=== PATIENT | female | born 1975 | race Caucasian/White ===

== ENCOUNTER 2019-03-12 18:21 | Inpatient (IN) | payer MEDICAID, OTHER ==
[~2019-03-12] VITALS: Ht 157.5 cm; Wt 58.6 kg
[2019-03-12] MEDS ORDERED: SOD CHLORIDE 0.9% 1,000 ML IV STA (19:06)
--- NOTE | 2019-03-12 19:09 | ERD ---
ER Documentation Chief Complaint Chief Complaint CP to neck/arm w/ nausea, no vomiting/SOB. took nitro x3-no improvement HPI This is a 43-year-old woman presenting with pressure-like chest discomfort radiating to the left shoulder and down the left medial arm and up to the neck beginning earlier today and lasting for about 30 minutes intermittently a few times today. She took aspirin and 3 doses of nitroglycerin without improvement and came here for evaluation. She does have a history of CAD and states she underwent PTCA via the right wrist back in September 2018 although she does not know if she received a coronary artery stent or just balloon angioplasty. She denies cough, no shortness of breath, no fevers or chills, no calf or leg swelling. ROS All systems reviewed and are negative except as per history of present illness. Medications Home Meds Reported Medications Prednisone* (Prednisone*) 5 Mg Tab, 5 MG PO DAILY, TAB 03/12/19 Nitroglycerin* (Nitrostat*) 0.4 Mg Tab.subl, 0.4 MG SL Q5MIN PRN for CHEST PAIN, BOTTLE 03/12/19 Allergies Allergies: Coded Allergies: No Known Drug Allergy (Unverified Allergy, Unknown, 03/12/19) PMhx/Soc History of CAD status post IA and PTCA with stent versus balloon (patient does not know) back in September 2018, hypertension FmHx Family History: No diabetes Physical Exam Vitals Vital Signs Date Temp Pulse Resp B/P (MAP) Pulse Ox O2 O2 Flow FiO2 Time Delivery Rate 03/12/19 62 20 117/76 98 Room Air 19:10 (90) 03/12/19 98.6 76 20 129/76 98 18:23 (93) Physical Exam GENERAL: Well-developed, well-nourished, well-hydrated, in no apparent distress, looks nontoxic in appearance HEENT: Moist mucous membranes, pink conjunctiva, no cervical spine tenderness or step-off deformities, no goiter, no jaundice or icterus, extraocular movements intact without pain. No submandibular induration, and no pharyngeal erythema NEURO: Alert and oriented 3, cranial nerves II through XII intact bilaterally, pupils equal round reactive to light, no focal deficits or facial asymmetry, sensation intact distally Strength 5/5 in upper and lower extremities diana aterally CARDIAC: Regular rate and rhythm, no murmurs rubs or gallops LUNGS: Clear bilaterally no wheezing crackles or stridor ABDOMEN: Soft nontender, no guarding, no rigidity, no rebound, no psoas sign no obturator sign. Normoactive bowel sounds SKIN: Warm and dry to touch, no abrasions, contusions, or hematomas, no lacerations, no ecchymosis, no target lesions, and without ulcers EXTREMITIES: No clubbing cyanosis or edema, calves are bilaterally symmetrical, no Homans sign, no popliteal cord sign. Distal pulses equal and bilateral PSYCH: Normal affect without agitation or irritability Result Diagram: 03/12/19191703/12/191917 Results 24 hrs Laboratory Tests Test 03/12/19 19:18 03/12/19 19:40 White Blood Count 10.7 10^3/ul Red Blood Count 3.57 10^6/ul Hemoglobin 10.9 g/dl Hematocrit 31.1 % Mean Corpuscular Volume 87.1 fl Mean Corpuscular Hemoglobin 30.5 pg Mean Corpuscular Hemoglobin Concent 35.0 g/dl Red Cell Distribution Width 14.7 % Platelet Count 137 10^3/UL Mean Platelet Volume 9.3 fl Immature Granulocytes % 0.400 % Neutrophils % 56.2 % Lymphocytes % 33.9 % Monocytes % 6.4 % Eosinophils % 2.5 % Basophils % 0.6 % Nucleated Red Blood Cells % 0.0 /100WBC Immature Granulocytes # 0.040 10^3/ul Neutrophils # 6.0 10^3/ul Lymphocytes # 3.6 10^3/ul Monocytes # 0.7 10^3/ul Eosinophils # 0.3 10^3/ul Basophils # 0.1 10^3/ul Nucleated Red Blood Cells # 0.0 10^3/ul Urine Color YELLOW Urine Clarity SLIGHTLY CLOUDY Urine pH 6.0 Urine Specific [place] 1.023 Urine Ketones NEGATIVE mg/dL Urine Nitrite NEGATIVE mg/dL Urine Bilirubin NEGATIVE mg/dL Urine Urobilinogen 1+ mg/dL Urine Leukocyte Esterase 1+ Lul/ul Urine Microscopic RBC 1 /HPF Urine Microscopic WBC 19 /HPF Urine Squamous Epithelial Cells FEW /HPF Urine Mucus MODERATE /HPF Urine Hemoglobin 1+ mg/dL Urine Glucose NEGATIVE mg/dL Urine Total Protein NEGATIVE mg/dl Sodium Level 144 mmol/L Potassium Level 3.8 mmol/L Chloride Level 106 mmol/L Carbon Dioxide Level 28 mmol/L Anion Gap 10 Blood Urea Nitrogen 8 mg/dl Creatinine 0.62 mg/dl Est Glomerular Filtrat Rate mL/min > 60 mL/min Glucose Level 99 mg/dl Calcium Level 9.3 mg/dl Total Bilirubin 0.3 mg/dl Direct Bilirubin 0.00 mg/dl Indirect Bilirubin 0.3 mg/dl Aspartate Amino Transf (AST/SGOT) 20 IU/L Alanine Aminotransferase (ALT/SGPT) 21 IU/L Alkaline Phosphatase 74 IU/L Troponin I < 0.012 ng/ml Total Protein 7.4 g/dl Albumin 4.0 g/dl Globulin 3.40 g/dl Albumin/Globulin Ratio 1.17 Lipase 60 U/L POC Beta HCG, Qualitative NEGATIVE Current Medications Medications Dose Sig/Michael Start Time Status Last (Trade) Ordered Route PRN Stop Time Admin Dose Reason Admin Aspirin 324 mg ONCE ONCE 03/12/19 DC 03/12/19 (Aspirin) PO 19:30 03/12/19 19:22 19:31 1 tab ONCE ONCE 03/12/19 DC 03/12/19 Nitroglycerin SL 19:30 03/12/19 19:23 19:31 (Nitroglyceri n (Sl Tab) 0.4 Mg) Sodium 1,000 ml @ Q1H STAT 03/12/19 DC 03/12/19 Chloride 1,000 mls/hr IV 19:06 03/12/19 19:22 20:05 Procedures/MDM IV line was established patient was placed on cardiac surgeon rhythm strip revealed a sinus rhythm at about 80 bpm with upright P and T waves. Patient was afebrile EKG performed, read by me revealed a normal sinus rhythm at 76 bpm, normal axis, narrow QRS complex, no concerning ST elevations or depressions noted One AP view of the chest performed, read by me reveals no acute infiltrates, normal mediastinum, sharp costophrenic and cardiac borders, no air under the diaphragm. Otherwise unremarkable chest x-ray. I administered aspirin 324 mg p.o. for cardioprotective measures, nitroglycerin 0.4 mg sublingual, morphine 4 mg IV, Zofran 4 mg IV, 1 L normal saline IV. CBC and electrolytes are normal, liver function tests were normal, troponin was negative, urinalysis positive for infection. I treated her here with ceftriaxone 1 g IV. Patient will be admitted to telemetry setting for continued cardiology consultation and management Departure Diagnosis: Primary Impression: Chest pain Chest pain type: chest pain due to myocardial ischemia Ischemic chest pain type: unstable angina pectoris Qualified Codes: I20.0 - Unstable angina Additional Impression: Acute UTI Condition: ASHLEIGH Mckeon MD Mar 12, 2019 19:09
[2019-03-12] MEDS ORDERED: NITROGLYCERIN (SL) 0.4 MG TAB SL ONE (19:30)
[2019-03-12] MEDS ORDERED: ASPIRIN 81 MG TAB PO ONE (19:30)
[2019-03-12] MEDS ORDERED: CEFTRIAXONE 1 GM/50 ML (PMX) 50 ML IVPB ONE (20:00)
[2019-03-12] MEDS ORDERED: morphine 4 MG/ML VIAL IV STA (20:10)
[2019-03-12] MEDS ORDERED: ONDANSETRON 4 MG INJ IV STA (20:10)
[2019-03-12] MEDS ORDERED: NITR0.4T39 SL (22:42)
[2019-03-12] MEDS ORDERED: PRED5TAB PO (22:43)
--- NOTE | 2019-03-12 23:56 | HP ---
Date/Time of Note Date/Time of Note DATE: 03/12/19 TIME: 23:56 Assessment/Plan VTE Prophylaxis Pharmacological prophylaxis: heparin Lines/Catheters IV Catheter Type (from Nrsg): Saline Lock Assessment/Plan Assessment/Plan 1. Chest pain: Rule out ACS -Patient had a cardiac cath in September of this year at [facility] (unknown if the stent was placed) -Telemetry monitoring -Supplemental oxygen, aspirin. As needed nitro -2D echo without ST-T wave abnormalities -Serial troponin -2D echo cardiology consult -Request cardiac cath report from [place] 2. 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 She follows up with a portfolio assistant (Dr. Villalta) -Continue home prednisone -Monitor platelets closely 3. UTI: - IV antibiotic, IV fluid. -Follow-up culture results Result Diagram: 03/12/19191703/12/191917 Results 24hrs Laboratory Tests Test 03/12/19 19:18 03/12/19 19:40 White Blood Count 10.7 Red Blood Count 3.57 L Hemoglobin 10.9 L Hematocrit 31.1 L Mean Corpuscular Volume 87.1 Mean Corpuscular Hemoglobin 30.5 Mean Corpuscular Hemoglobin Concent 35.0 Red Cell Distribution Width 14.7 H Platelet Count 137 L Mean Platelet Volume 9.3 Immature Granulocytes % 0.400 Neutrophils % 56.2 Lymphocytes % 33.9 Monocytes % 6.4 Eosinophils % 2.5 Basophils % 0.6 Nucleated Red Blood Cells % 0.0 Immature Granulocytes # 0.040 H Neutrophils # 6.0 Lymphocytes # 3.6 H Monocytes # 0.7 Eosinophils # 0.3 Basophils # 0.1 Nucleated Red Blood Cells # 0.0 Urine Color YELLOW Urine Clarity SLIGHTLY CLOUDY A Urine pH 6.0 Urine Specific [place] 1.023 Urine Ketones NEGATIVE Urine Nitrite NEGATIVE Urine Bilirubin NEGATIVE Urine Urobilinogen 1+ H Urine Leukocyte Esterase 1+ H Urine Microscopic RBC 1 Urine Microscopic WBC 19 H Urine Squamous Epithelial Cells FEW Urine Mucus MODERATE Urine Hemoglobin 1+ H Urine Glucose NEGATIVE Urine Total Protein NEGATIVE Sodium Level 144 Potassium Level 3.8 Chloride Level 106 Carbon Dioxide Level 28 Anion Gap 10 Blood Urea Nitrogen 8 Creatinine 0.62 Est Glomerular Filtrat Rate mL/min > 60 Glucose Level 99 Calcium Level 9.3 Total Bilirubin 0.3 Direct Bilirubin 0.00 Indirect Bilirubin 0.3 Aspartate Amino Transf (AST/SGOT) 20 Alanine Aminotransferase (ALT/SGPT) 21 Alkaline Phosphatase 74 Troponin I < 0.012 Total Protein 7.4 Albumin 4.0 Globulin 3.40 H Albumin/Globulin Ratio 1.17 Lipase 60 POC Beta HCG, Qualitative NEGATIVE HPI/ROS Admit Date/Time Admit Date/Time Mar 12, 2019 at 19:57 Hx of Present Illness Patient is a 43-year-old female with a history of CAD status post cardiac cath in September of this year (at [facility], unknown if stent was placed) and a history of thrombocytopenia who presents the ER complaining of chest pain. Chest pain started earlier today. Chest pain is located in the mid chest and also left-sided with radiation to the left shoulder. Denied associated shortness of breath, nausea/vomiting or diaphoresis. When presented to ER, vitals were stable. First troponin is negative and EKG without ST-T wave abnormalities. Chest x-ray without acute findings. PMH/Family/Social Past Medical History Medical History: other (See HPI) Coded Allergies: No Known Drug Allergy (Unverified Allergy, Unknown, 03/12/19) Past Surgical History Past Surgical Hx: other (See HPI) Family History Significant Family History: no pertinent family hx Social History Alcohol Use: none Smoking Status: Never smoker Drug Use: none Exam/Review of Systems Vital Signs Vitals Vital Signs Date Temp Pulse Resp B/P (MAP) Pulse Ox O2 O2 Flow FiO2 Time Delivery Rate 03/12/19 98.1 70 17 112/70 100 Room Air 22:54 (84) Exam Constitutional: alert, oriented, well developed Head: normocephalic, atraumatic Eyes: EOMI, PERRL Respiratory: clear to auscultation, normal air movement Cardiovascular: regular rate and rhythm, nl pulses Gastrointestinal: soft Extremities: normal pulses VIDAL GARNER MD Mar 12, 2019 23:56
[2019-03-13] MEDS ORDERED: NACL 0.9% 3 ML SYG IV SCH
[2019-03-13] MEDS ORDERED: ONDANSETRON 4 MG INJ IV PRN
[2019-03-13] MEDS ORDERED: ALBUTEROL/IPRATROPIUM (NEB) 3 ML AMP HHN PRN
[2019-03-13] MEDS ORDERED: ACETAMINOPHEN 325 MG TAB PO PRN
[2019-03-13] MEDS: HYDROCODONE/APAP (5/325) TAB PO PRN ×4 (00:24→20:57)
[2019-03-13 00:33] VITALS: Ht 157.5 cm; Wt 58.6 kg
[2019-03-13 04:08] VITALS: BP 104/54; PULSE 81; RESP 18
[2019-03-13 07:25] VITALS: BP 126/70; PULSE 70; RESP 22
[2019-03-13] MEDS: ASPIRIN 81 MG TAB PO SCH (08:25)
[2019-03-13] MEDS: ENOXAPARIN 40 MG/0.4 ML SYG SC SCH (08:28)
[2019-03-13] MEDS: predniSONE 5 MG TAB PO SCH (08:44)
[2019-03-13 12:23] VITALS: BP 132/84; PULSE 77; RESP 20
--- NOTE | 2019-03-13 15:24 | RADRPT ---
Echocardiogram Report Patient Name: MANUEL MILLERPatient ID: [id number] : 1975 (43y 6m)Study Date: 03/13/2019 10:23:17 AM Gender: FAccession #: [id number] Tech: Kiera Dangelo RDCS Location: 525 Ref.Physician: VIDAL GARNER Height(Cm): BSA: Weight(Kg): Quality: AdequateOrder Physician: VIDAL GARNER Account #: Procedures: Echocardiographic Report: Transthoracic echocardiogram with complete 2D, M-Mode, and doppler examination. Indications: Chest Pain. Measurements: 2D/M Mode Doppler Measurement Value Normal Range Measurement Value Normal Range LVIDd 2D 3.9 [ 3.8 - 5.2 ] cm AV Peak Theron 1.6 [ 100.0 - 170.0 ] cm/sec LVIDs 2D 2.8 [ 2.2 - 3.5 ] cm AV Peak PG 10.0 [ 2.0 - 9.0 ] mmHg LVPWd 2D 1.0 [ 0.6 - 0.9 ] cm LVOT Peak Theron 0.9 [ 70.0 - 110.0 ] cm/sec IVSd 2D 1.0 [ 0.6 - 0.9 ] cm LVOT Peak PG 4.0 [ 2.0 - 6.0 ] mmHg AoR Diam 2D 2.8 [ 2.3 - 3.1 ] cm MV E Peak Theron 1.0 [ 60.0 - 130.0 ] cm/sec EDV 2D 64.3 [ 46.0 - 106.0 ] ml MV A Peak Theron 0.8 [ 100.0 - 120.0 ] cm/sec ESV 2D 29.0 [ 14.0 - 42.0 ] ml MV E/A 1.2 [ 0.8 - 1.5 ] ratio EF 2D 54.9 [ 54.0 - 74.0 ] percent MV Decel Time 141 [ 104 - 258 ] msec LA Dimen 2D 2.8 [ 2.7 - 3.8 ] cm Lat E` Theron 0.2 [ 10.0 - 15.0 ] cm/sec Lateral E/E` 6.3 [ 1.0 - 2.0 ] ratio MV E/A 1.2 [ 0.8 - 1.5 ] ratio TR Peak Theron 2.6 [ 100.0 - 280.0 ] cm/sec TR Peak PG 27.0 mmHg RVSP 30.0 [ 10.0 - 36.0 ] mmHg RA Pressure 3.0 mmHg Findings: Left Ventricle: Normal left ventricular systolic function. Normal left ventricular cavity size. Normal left ventricular wall thickness. Ejection fraction is visually estimated at 55 %. Tissue Doppler/Mitral Doppler indices are within normal limits. Right Ventricle: Normal right ventricular size. Normal right ventricular systolic function. Left Atrium: The left atrium is normal in size. Right Atrium: The right atrium is normal in size. Mitral Valve: Normal appearance and function of the mitral valve with trace physiologic regurgitation. Aortic Valve: Normal appearance of the aortic valve. No significant aortic stenosis or insufficiency. Tricuspid Valve: Normal appearance and function of the tricuspid valve with trace physiologic regurgitation. Normal right ventricular systolic pressure. The estimated Peak RVSP is 30 mmHg. Pulmonic Valve: Pulmonic valve not well visualized. Pericardium: Normal pericardium with no significant pericardial effusion. Aorta: Normal aortic root. IVC: Normal size and normal respiratory collapse consistent with normal right atrial pressure. Conclusions: Normal left ventricular systolic function. Normal left ventricular cavity size. Normal left ventricular wall thickness. Ejection fraction is visually estimated at 55 %. Tissue Doppler/Mitral Doppler indices are within normal limits. Normal appearance and function of the mitral valve with trace physiologic regurgitation. Normal appearance and function of the tricuspid valve with trace physiologic regurgitation. Normal right ventricular systolic pressure. The estimated Peak RVSP is 30 mmHg. Electronically Signed By: Rodolfo Gordon 2019-03-13 15:23:25 PDT
[2019-03-13 16:24] VITALS: BP 115/58; PULSE 65; RESP 22
[2019-03-13] MEDS: NITROGLYCERIN (SL) 0.4 MG TAB SL PRN ×2 (17:10→20:11)
[2019-03-13] MEDS: ISOSORBIDE DINITRATE 20 MG TAB PO SCH ×2 (17:25→20:57)
[2019-03-13] MEDS ORDERED: LIDOCAINE/MYLANTA 40 ML BTL PO ONE (18:00)
--- NOTE | 2019-03-13 18:07 | PN ---
Date/Time of Note Date/Time of Note DATE: 03/13/19 TIME: 18:03 Assessment/Plan VTE Prophylaxis Risk score (from Ns)>0 risk: 1 SCD applied (from Ns): Yes SCD contraindicated: low risk/ambulating Pharmacological prophylaxis: NA/contraindicated Pharm contraindication: low risk/ambulating Lines/Catheters IV [facility] Saline Lock Assessment/Plan Hospital Course Hospitalist coverage Assessment and plan 1. Chest pain, essentially nonexertional, ruled out ACS. Stress t -ve 2 mnths ago. Cath -ve 6 mnths ago. reevaluate LFTs/ lipase/ CT chest to evaluate aorta. 2. Anemia, stable observe 3. History of UTI? S: Chest/ back/ neck pain w minimal activity. No recent travel ill contacts chest wall injury. Not working. No cough nausea vomiting fever or dyspnea. Denies any miguel symptoms of GERD or caffeine use. However pain relieved with nitro. Will treat for GERD as well. No fainting syncope. Objective: Vital signs stable sinus rhythm Physical exam No pallor icterus JVD Regular no mrg Clear no tachypnea nontender Benign No edema/Homans Result Diagram: 03/13/19 0534 03/13/19 0534 Results 24hrs Laboratory Tests Test 03/12/19 19:18 03/12/19 19:40 03/13/19 05:34 03/13/19 09:01 White Blood Count 10.7 8.4 # Red Blood Count 3.57 L 3.59 L Hemoglobin 10.9 L 10.9 L Hematocrit 31.1 L 30.9 L Mean Corpuscular 87.1 86.1 Volume Mean Corpuscular 30.5 30.4 Hemoglobin Mean Corpuscular 35.0 35.3 Hemoglobin Concent Red Cell 14.7 H 15.1 H Distribution Width Platelet Count 137 L 118 L Mean Platelet 9.3 10.0 Volume Immature 0.400 0.400 Granulocytes % Neutrophils % 56.2 51.8 Lymphocytes % 33.9 38.0 Monocytes % 6.4 5.9 Eosinophils % 2.5 3.3 Basophils % 0.6 0.6 Nucleated Red 0.0 0.0 Blood Cells % Immature 0.040 H 0.030 Granulocytes # Neutrophils # 6.0 4.4 Lymphocytes # 3.6 H 3.2 H Monocytes # 0.7 0.5 Eosinophils # 0.3 0.3 Basophils # 0.1 0.1 Nucleated Red 0.0 0.0 Blood Cells # Urine Color YELLOW Urine Clarity SLIGHTLY CLOUDY A Urine pH 6.0 Urine Specific 1.023 [place] Urine Ketones NEGATIVE Urine Nitrite NEGATIVE Urine Bilirubin NEGATIVE Urine Urobilinogen 1+ H Urine Leukocyte 1+ H Esterase Urine Microscopic 1 RBC Urine Microscopic 19 H WBC Urine Squamous FEW Epithelial Cells Urine Mucus MODERATE Urine Hemoglobin 1+ H Urine Glucose NEGATIVE Urine Total NEGATIVE Protein Sodium Level 144 144 Potassium Level 3.8 3.5 Chloride Level 106 111 H Carbon Dioxide 28 24 Level Anion Gap 10 9 Blood Urea 8 6 L Nitrogen Creatinine 0.62 0.56 Est Glomerular > 60 > 60 Filtrat Rate mL/min Glucose Level 99 114 Calcium Level 9.3 8.7 Total Bilirubin 0.3 0.3 Direct Bilirubin 0.00 0.00 Indirect Bilirubin 0.3 0.3 Aspartate Amino 20 22 Transf (AST/SGOT) Alanine 21 24 Aminotransferase ( ALT/SGPT) Alkaline 74 64 Phosphatase Troponin I < 0.012 0.058 Total Protein 7.4 6.6 Albumin 4.0 3.6 Globulin 3.40 H 3.00 Albumin/Globulin 1.17 1.20 Ratio Lipase 60 POC Beta HCG, NEGATIVE Qualitative Hemoglobin A1c 5.4 Magnesium Level 2.1 Triglycerides 163 H Level Cholesterol Level 169 LDL Cholesterol, 110 Calculated HDL Cholesterol 26 L Cholesterol/HDL 6.5 Ratio Thyroid 3.050 Stimulating Hormone (TSH) Test 03/13/19 15:26 Troponin I 0.037 Exam/Review of Systems Exam Vitals Vital Signs Date Temp Pulse Resp B/P (MAP) Pulse Ox O2 O2 Flow FiO2 Time Delivery Rate 03/13/19 98.0 65 22 115/58 96 Room Air 16:24 (77) Intake and Output 03/12/19 03/12/19 03/13/19 1515:00 23:00 07:00 IntakeIntake Total 250 ml OutputOutput Total 0 ml BalanceBalance 250 ml Results Results 24hrs Laboratory Tests Test 03/12/19 19:18 03/12/19 19:40 03/13/19 05:34 03/13/19 09:01 White Blood Count 10.7 8.4 # Red Blood Count 3.57 L 3.59 L Hemoglobin 10.9 L 10.9 L Hematocrit 31.1 L 30.9 L Mean Corpuscular 87.1 86.1 Volume Mean Corpuscular 30.5 30.4 Hemoglobin Mean Corpuscular 35.0 35.3 Hemoglobin Concent Red Cell 14.7 H 15.1 H Distribution Width Platelet Count 137 L 118 L Mean Platelet 9.3 10.0 Volume Immature 0.400 0.400 Granulocytes % Neutrophils % 56.2 51.8 Lymphocytes % 33.9 38.0 Monocytes % 6.4 5.9 Eosinophils % 2.5 3.3 Basophils % 0.6 0.6 Nucleated Red 0.0 0.0 Blood Cells % Immature 0.040 H 0.030 Granulocytes # Neutrophils # 6.0 4.4 Lymphocytes # 3.6 H 3.2 H Monocytes # 0.7 0.5 Eosinophils # 0.3 0.3 Basophils # 0.1 0.1 Nucleated Red 0.0 0.0 Blood Cells # Urine Color YELLOW Urine Clarity SLIGHTLY CLOUDY A Urine pH 6.0 Urine Specific 1.023 [place] Urine Ketones NEGATIVE Urine Nitrite NEGATIVE Urine Bilirubin NEGATIVE Urine Urobilinogen 1+ H Urine Leukocyte 1+ H Esterase Urine Microscopic 1 RBC Urine Microscopic 19 H WBC Urine Squamous FEW Epithelial Cells Urine Mucus MODERATE Urine Hemoglobin 1+ H Urine Glucose NEGATIVE Urine Total NEGATIVE Protein Sodium Level 144 144 Potassium Level 3.8 3.5 Chloride Level 106 111 H Carbon Dioxide 28 24 Level Anion Gap 10 9 Blood Urea 8 6 L Nitrogen Creatinine 0.62 0.56 Est Glomerular > 60 > 60 Filtrat Rate mL/min Glucose Level 99 114 Calcium Level 9.3 8.7 Total Bilirubin 0.3 0.3 Direct Bilirubin 0.00 0.00 Indirect Bilirubin 0.3 0.3 Aspartate Amino 20 22 Transf (AST/SGOT) Alanine 21 24 Aminotransferase ( ALT/SGPT) Alkaline 74 64 Phosphatase Troponin I < 0.012 0.058 Total Protein 7.4 6.6 Albumin 4.0 3.6 Globulin 3.40 H 3.00 Albumin/Globulin 1.17 1.20 Ratio Lipase 60 POC Beta HCG, NEGATIVE Qualitative Hemoglobin A1c 5.4 Magnesium Level 2.1 Triglycerides 163 H Level Cholesterol Level 169 LDL Cholesterol, 110 Calculated HDL Cholesterol 26 L Cholesterol/HDL 6.5 Ratio Thyroid 3.050 Stimulating Hormone (TSH) Test 03/13/19 15:26 Troponin I 0.037 Medications Medication Current Medications IV Flush (NS 3 ml) 3 ml PER PROTOCOL IV ; Start 03/13/19 at 00:00 Ondansetron HCl (Zofran Inj) 4 mg Q6H PRN IV NAUSEA/VOMITING; Start 03/13/19 at 00:00 Aspirin (Aspirin) 81 mg DAILY PO Last administered on 03/13/19 08:25; Admin Dose 81 MG; Start 03/13/19 at 09:00 Acetaminophen (Tylenol Tab) 650 mg Q6H PRN PO .PAIN 1-3 OR TEMP; Start 03/13/19 at 00:00 Enoxaparin Sodium (Lovenox) 40 mg DAILY SC Last administered on 03/13/19 08:28; Admin Dose 40 MG; Start 03/13/19 at 09:00 Albuterol/ Ipratropium (Duoneb) 3 ml Q2H RESP THERAPY PRN HHN SHORTNESS OF BREATH; Start 03/13/19 at 00:00 Nitroglycerin (Nitroglycerin (Sl Tab) 0.4 Mg) 0.4 tab Q5M PRN SL CHEST PAIN Last administered on 03/13/19at 17:10; Admin Dose 0.4 TAB; Start 03/13/19 at 00:00 Acetaminophen/ Hydrocodone Bitart ([place] (5/325)) 1 tab Q4H PRN PO MODERATE PAIN LEVEL 4-6; Start 03/13/19 at 00:30 Acetaminophen/ Hydrocodone Bitart ([place] (5/325)) 2 tab Q4H PRN PO SEVERE PAIN LEVEL 7-10 Last administered on 03/13/19at 13:58; Admin Dose 2 TAB; Start 03/13/19 at 00:30 Prednisone (Prednisone) 5 mg DAILY PO Last administered on 03/13/19at 08:44; Admin Dose 5 MG; Start 03/13/19 at 09:00 Isosorbide Dinitrate (Isordil) 20 mg TID PO Last administered on 03/13/19 17:25; Admin Dose 20 MG; Start 03/13/19 at 15:00 Pantoprazole (Protonix Tab) 40 mg BID@,18 PO ; Start 03/14/19 at 09:00 FRANCESCO BOYER MD Mar 13, 2019 18:07
--- NOTE | 2019-03-13 18:17 | CONS ---
DATE OF ADMISSION: 03/12/2019 DATE OF CONSULTATION: 03/13/2019 TYPE OF CONSULTATION: Cardiology. REASON FOR CONSULTATION: Chest pain, assess for acute coronary syndrome. REQUESTING PHYSICIAN: Dr. Telles from the hospitalist service. HISTORY OF PRESENT ILLNESS: Ms. Horton is a 43-year-old female with history of chest pain of onset i september, described as a pressure-like sensation, who states that she presented to [facility] in Sep with his chest pain and was taken for cardiac catheterization. Results, which I have wi th me here now which revealed no significant discrete lesions, normal left ventricular ejection fract ion and elevated left ventricular end diastolic pressure of 20. The patient states she was discharge d to outpatient followup on the medications including nitrates, continued to have chest pains. The p atient has a history of thrombocytopenia. The patient's chest pain has been ongoing since September an d on the day of admission became significantly worse, very strong; therefore, she represented to the emergency room here at [facility]. Upon arrival, temperature 98.6, blood pressure 129/76, pulse 76, respiratory rate 20, sat 98%. The patient's labs are notable for white count of 10 .7, hemoglobin 10.9, platelet count of 137. Sodium 144, potassium 3.8, creatinine 1.6, BUN 8, tropon in negative. TSH 3.0. Beta hCG negative. The patient underwent a chest x-ray revealing no acute ca rdiopulmonary abnormalities. The patient's electrocardiogram it is not in the chart for my review al though this patient has been admitted for chest pain. Therefore, per ER doctor was the one that was reviewed. It revealed no significant ST elevations or ST changes. The patient at this time continue s to complain of pressure-like chest pain. PAST MEDICAL HISTORY: As above in HPI. MEDICATIONS CURRENTLY IN HOSPITAL: 1. Aspirin 81 mg daily. 2. Lovenox 40 mg subcutaneously daily. 3. Prednisone 5 mg daily. 4. [place] p.r.n. 5. Zofran p.r.n. 6. Tylenol p.r.n. 7. DuoNeb p.r.n. 8. nitroglycerin p.r.n. ALLERGIES: NO KNOWN DRUG ALLERGIES. SOCIAL HISTORY: No current tobacco, EtOH or illicit drug use. FAMILY HISTORY: No sudden cardiac or early CAD. REVIEW OF SYSTEMS: As above in HPI. CONSTITUTIONAL: No fevers, chills. PULMONARY: No current shortness of breath. CARDIOVASCULAR: Positive chest pain. GASTROINTESTINAL: No vomiting. GENITOURINARY: No hematuria. MUSCULOSKELETAL: No degenerative joint disease. PSYCHIATRIC: No documented psych history. NEUROLOGIC: No documented history of CVA. ENDOCRINE: No documented history of diabetes mellitus. PHYSICAL EXAMINATION: VITAL SIGNS: Temperature 98.6, blood pressure 132/84, pulse 77, respiratory rate 20, satting 96%. GENERAL: The patient is alert, awake, complaining of substernal chest pain. NECK: JVP approximately 8 to 9 cm of water. CHEST: Fair air movement throughout. HEART: Regular rate and rhythm. Normal S1, S2, I/ systolic murmur, nondisplaced PMI. ABDOMEN: Positive bowel sounds, soft. EXTREMITIES: No edema, 1+ pulses bilaterally to posterior tibial. LABORATORIES: Most recently from today, sodium 144, potassium 3.5, creatinine of 0.56, BUN 6, tropon in negative x2. UA borderline. IMAGING STUDIES: As above in HPI. No further imaging for my review at this time. ECG: None available for my review at this time. IMPRESSION: 1. Chest pain, assess for acute coronary syndrome in a patient who has had a catheterization reveali ng no significant stenosis in September this year. 2. Mild thrombocytopenia. 3. Anemia. 4. Shortness of breath at the same time as chest pain, difficulty catching her breath. RECOMMENDATIONS: 1. At this time, we would maintain patient on telemetry monitoring to follow rhythm and rate control closely. 2. We would complete the patient's rule out for myocardial infarction to ensure the patient's chest pain. This onset is not due to an acute coronary syndrome such as acute myocardial infarction, unlik jordana to be a stable angina as the patient has had a left heart catheterization September 2018 revealing no significant obstructive disease. 3. Continue the patient's aspirin for prophylaxis against cardiovascular events. 4. We will start patient on oral nitrates and follow symptomatology and use of a nitroglycerins for breakthrough pain. 5. Continue the patient's steroids. Follow platelet count closely. 6. We would check serial EKGs to assess for any ongoing changes in EKG. Now, baseline EKG in the mo rning, EKG for any recurrent complaints of chest pain or change in rhythm. I will check a 2D echo fo r this patient's ejection fraction, wall motion or any major abnormalities, for reassessment since keiry 2018 due to ongoing symptoms. Thank you for allowing me to take part in the care of this patient. I will continue to follow him ve ry closely with you with further recommendations will be made as the patient progresses through [facility] clinical course. Dictated By: IRVIN GUTIERREZ/MELVA Conf#: [id number] DID#: [id number] CC: MICHELLE TELLES; VIDAL GARNER MD;*End*
[2019-03-13] MEDS ORDERED: SOD CHLORIDE 0.9% 100 ML ONE (19:17)
[2019-03-13] MEDS ORDERED: IOHEXOL 300MG/ML 150 ML BTL ONE (19:17)
[2019-03-13 20:00] VITALS: BP 112/68; PULSE 71; RESP 20
[2019-03-14] VITALS: BP 108/67; PULSE 74; RESP 18
[2019-03-14] MEDS: HYDROCODONE/APAP (5/325) TAB PO PRN ×3 (03:08→15:00)
[2019-03-14 04:00] VITALS: BP 117/69; PULSE 62; RESP 19
[2019-03-14 07:20] VITALS: BP 110/72; PULSE 65; RESP 18
[2019-03-14] MEDS: ISOSORBIDE DINITRATE 20 MG TAB PO SCH ×2 (08:20→14:22)
[2019-03-14] MEDS: predniSONE 5 MG TAB PO SCH (08:20)
[2019-03-14] MEDS: ASPIRIN 81 MG TAB PO SCH (08:21)
[2019-03-14] MEDS: ENOXAPARIN 40 MG/0.4 ML SYG SC SCH (08:22)
[2019-03-14] MEDS ORDERED: PANTOPRAZOLE (EC) 40 MG TAB PO SCH (09:00)
[2019-03-14 11:23] VITALS: BP 121/64; PULSE 84; RESP 18
--- NOTE | 2019-03-14 14:06 | DS ---
Date/Time of Note Date/Time of Note DATE: 03/14/19 TIME: 14:02 Discharge Summary Admission/Discharge Info Admit Date/Time Mar 12, 2019 at 19:57 Discharge Date/Time Patient Condition: Stable Procedures Chest x-ray Negative chest x-ray Negative CT Chest with contrast IMPRESSION: 1. Slight dependent changes are noted in both lungs. 2. Splenomegaly is suggested. Ultrasound or CT of the abdomen pelvis may be helpful for confirmation. Labs: TSH lipase within normal limits. He had 3 troponins negative. Hx of Present Illness 43-year-old female admitted with chest pain. Hospital Course Hospitalist coverage/hospital course Waited for chest pain. Ruled out for ACS by enzymes EKG symptoms. Apparently she had a cath in September in [place]. This showed significant coronary artery disease. After which she followed up with cardiology and had a stress test. Patient has not not had any cardiac intervention after the stress test. Lipase normal. CAT scan of the chest did not show any aortic pathology. Vital signs stable and fit for discharge home. Other etiologies could be musculoskeletal, GI related, or. She does state having some anxiety. Not sure why or if she is on prednisone. Stable for for discharge. Short course of Motrin and BuSpar for anxiety. I asked her to follow-up with primary to follow her symptoms. And if her anxiety continues I recommended she asked to visit a specialist and down the line. A/P 1. Chest pain, essentially nonexertional, ruled out ACS. Stress t -ve 2 mnths ago. Cath -ve 6 mnths ago. evaluated LFTs/ lipase/ CT chest. Discharge. 2. Anemia, stable observe 3. History of UTI? S: Chest/ back/ neck pain w minimal activity. No recent travel ill contacts chest wall injury. Not working. No cough nausea vomiting fever or dyspnea. Denies any miguel symptoms of GERD or caffeine use. However pain relieved with nitro. Will treat for GERD as well. No fainting syncope. Objective: Vital signs stable sinus rhythm Physical exam No pallor icterus JVD Regular no mrg Clear no tachypnea nontender Benign No edema/Hom[place] Home Meds Reported Medications Prednisone* (Prednisone*) 5 Mg Tab, 5 MG PO DAILY, TAB 03/12/19 Nitroglycerin* (Nitrostat*) 0.4 Mg Tab.subl, 0.4 MG SL Q5MIN PRN for CHEST PAIN, BOTTLE 03/12/19 Primary Care Provider Not On Staff Doctor Time spent on discharge: > 30 minutes Pending Labs Laboratory Tests Test 03/13/19 15:26 03/14/19 05:51 Troponin I 0.037 ng/ml (0.000-0.120) White Blood Count 10.0 10^3/ul (4.8-10.8) Red Blood Count 3.83 10^6/ul (4.20-5.40) Hemoglobin 11.5 g/dl (12.0-16.0) Hematocrit 33.4 % (37.0-47.0) Mean Corpuscular Volume 87.2 fl (82.0-101.0) Mean Corpuscular 30.0 pg (29.0-33.0) Hemoglobin Mean Corpuscular 34.4 g/dl (32.0-37.0) Hemoglobin Concent Red Cell Distribution 14.9 % (11.5-14.5) Width Platelet Count 144 10^3/UL (140-415) Mean Platelet Volume 10.3 fl (7.4-10.4) Immature Granulocytes % 0.200 % (0.001-0.429) Neutrophils % 50.2 % (39.0-77.0) Lymphocytes % 41.1 % (15.0-51.0) Monocytes % 5.5 % (0.0-11.0) Eosinophils % 2.6 % (0.0-7.0) Basophils % 0.4 % (0.0-2.0) Nucleated Red Blood Cells 0.0 /100WBC (0.0-0.0) % Immature Granulocytes # 0.020 10^3/ul (0.0-0.031) Neutrophils # 5.0 10^3/ul (1.6-7.5) Lymphocytes # 4.1 10^3/ul (0.8-2.9) Monocytes # 0.6 10^3/ul (0.3-0.9) Eosinophils # 0.3 10^3/ul (0.0-0.5) Basophils # 0.0 10^3/ul (0.0-0.1) Nucleated Red Blood Cells 0.0 10^3/ul (0.0-0.0) # Sodium Level 141 mmol/L (135-144) Potassium Level 3.9 mmol/L (3.5-5.1) Chloride Level 103 mmol/L (97-110) Carbon Dioxide Level 26 mmol/L (21-31) Anion Gap 12 (5-13) Blood Urea Nitrogen 9 mg/dl (7-20) Creatinine 0.63 mg/dl (0.44-1.00) Est Glomerular Filtrat > 60 mL/min (>60) Rate mL/min Glucose Level 135 mg/dl (70-220) Calcium Level 9.1 mg/dl (8.4-10.2) Total Bilirubin 0.3 mg/dl (0.2-1.3) Direct Bilirubin 0.00 mg/dl (0.00-0.20) Indirect Bilirubin 0.3 mg/dl (0-1.1) Aspartate Amino 14 IU/L (15-46) Transf (AST/SGOT) Alanine 13 IU/L (13-69) Aminotransferase (ALT/SGPT ) Alkaline Phosphatase 69 IU/L (42-121) Total Protein 7.1 g/dl (6.1-8.1) Albumin 4.0 g/dl (3.3-4.9) Globulin 3.10 g/dl (1.3-3.2) Albumin/Globulin Ratio 1.29 Lipase 234 U/L (23-300) FRANCESCO BOYER MD Mar 14, 2019 14:06
--- NOTE | 2019-03-14 14:08 | PDOCDIS ---
Discharge Instructions CONDITION [id number] Patient Condition: [id number] Stable HOME CARE INSTRUCTIONS: [id number] Diet Instructions: [id number] Low Fat /Cholesterol ACTIVITY: Xhmym2Rx Activity Restrictions: [id number] Slowly Increase Activity Avoid heavy lifting FOLLOW UP/APPOINTMENTS Follow-up Plan appt Primary 1wk. Cardio Dr William Guerra 2wks. FRANCESCO BOYER MD Mar 14, 2019 14:08
[2019-03-14] MEDS ORDERED: BUSP5TAB2 PO (14:10)
[2019-03-14] MEDS ORDERED: ACET325T33 PO (14:10)
[2019-03-14] MEDS ORDERED: IBUP-1542 PO (14:10)
[2019-03-14] MEDS ORDERED: PANT40TA4 PO (14:10)
[2019-03-14] MEDS ORDERED: IBUPROFEN 600 MG TAB PO PRN (14:30)
[2019-03-14 15:14] VITALS: BP 126/74; PULSE 71; RESP 18
--- NOTE | 2019-03-14 15:48 | CONS ---
Consult Date/Type/Reason Admit Date/Time Mar 12, 2019 at 19:57 Initial Consult Date Date/Time of Note DATE: 03/14/19 TIME: 15:47 Subjective No acute events - r/o NC. ROS: No fever, no chills, no nausea, no vomiting, no diarrhea/constipation No recent weight changes No chest pain, no PND, no orthopnea No dizziness, blurred vision No thirst, no heat or cold intolerance Objective Vitals Vital Signs Date Temp Pulse Resp B/P (MAP) Pulse Ox O2 O2 Flow FiO2 Time Delivery Rate 03/14/19 98.0 71 18 126/74 96 Room Air 15:14 (91) Intake and Output 03/13/19 03/13/19 03/14/19 1515:00 23:00 07:00 IntakeIntake Total 880 ml BalanceBalance 880 ml Exam General: WN/WD/NAD, AOx 3 Croat[place] HEENT: Unicetric/atraumatic/EOMI ( follow commands) NECK: JVD elevated, no thyromegaly Lymph: no lymphadenopathy HEART: regular with no S3, II/ systolic murmur at apex LUNGS: Coarse sounds ABD: soft, NT, ND, +BS : Intact Neuro: non focal SKIN: chronic changes EXT: trace edema Results/Medications Result Diagram: 03/14/1955003/14/19 0551 Results 24 hrs Laboratory Tests Test 03/14/19 05:51 White Blood Count 10.0 Red Blood Count 3.83 L Hemoglobin 11.5 L Hematocrit 33.4 L Mean Corpuscular Volume 87.2 Mean Corpuscular Hemoglobin 30.0 Mean Corpuscular Hemoglobin Concent 34.4 Red Cell Distribution Width 14.9 H Platelet Count 144 # Mean Platelet Volume 10.3 Immature Granulocytes % 0.200 Neutrophils % 50.2 Lymphocytes % 41.1 Monocytes % 5.5 Eosinophils % 2.6 Basophils % 0.4 Nucleated Red Blood Cells % 0.0 Immature Granulocytes # 0.020 Neutrophils # 5.0 Lymphocytes # 4.1 H Monocytes # 0.6 Eosinophils # 0.3 Basophils # 0.0 Nucleated Red Blood Cells # 0.0 Sodium Level 141 Potassium Level 3.9 Chloride Level 103 Carbon Dioxide Level 26 Anion Gap 12 Blood Urea Nitrogen 9 Creatinine 0.63 Est Glomerular Filtrat Rate mL/min > 60 Glucose Level 135 Calcium Level 9.1 Total Bilirubin 0.3 Direct Bilirubin 0.00 Indirect Bilirubin 0.3 Aspartate Amino Transf (AST/SGOT) 14 L Alanine Aminotransferase (ALT/SGPT) 13 Alkaline Phosphatase 69 Total Protein 7.1 Albumin 4.0 Globulin 3.10 Albumin/Globulin Ratio 1.29 Lipase 234 Home Meds Active Scripts Pantoprazole* (Pantoprazole*) 40 Mg Tablet.dr, 40 MG PO DAILY for 14 Days, #14 ok for OTC prilosec/ omeprazole. Prov:FRANCESCO BOYER MD 03/14/19 Ibuprofen* (Ibuprofen*) 600 Mg Tablet, 600 MG PO Q6H PRN for MILD PAIN LEVEL 1-3 for 5 Days, #20 TAB Prov:FRANCESCO BOYER MD 03/14/19 Buspirone Hcl* (Buspirone Hcl*) 5 Mg Tab, 5 MG PO BID for 14 Days, #30 TAB Prov:FRANCESCO BOYER MD 03/14/19 Acetaminophen* (Tylenol*) 325 Mg Tablet, 650 MG PO Q6H PRN for .PAIN 1-3 OR TEMP for 1 Day, TAB Prov:FRANCESCO BOYER MD 03/14/19 Reported Medications Prednisone* (Prednisone*) 5 Mg Tab, 5 MG PO DAILY, TAB 03/12/19 Nitroglycerin* (Nitrostat*) 0.4 Mg Tab.subl, 0.4 MG SL Q5MIN PRN for CHEST PAIN, BOTTLE 03/12/19 Medications Current Medications IV Flush (NS 3 ml) 3 ml PER PROTOCOL IV ; Start 03/13/19 at 00:00 Ondansetron HCl (Zofran Inj) 4 mg Q6H PRN IV NAUSEA/VOMITING; Start 03/13/19 at 00:00 Aspirin (Aspirin) 81 mg DAILY PO Last administered on 03/14/19at 08:21; Admin Dose 81 MG; Start 03/13/19 at 09:00 Acetaminophen (Tylenol Tab) 650 mg Q6H PRN PO .PAIN 1-3 OR TEMP; Start 03/13/19 at 00:00 Enoxaparin Sodium (Lovenox) 40 mg DAILY SC Last administered on 03/14/19at 08:22; Admin Dose 40 MG; Start 03/13/19 at 09:00 Albuterol/ Ipratropium (Duoneb) 3 ml Q2H RESP THERAPY PRN HHN SHORTNESS OF BREATH; Start 03/13/19 at 00:00 Nitroglycerin (Nitroglycerin (Sl Tab) 0.4 Mg) 0.4 tab Q5M PRN SL CHEST PAIN Last administered on 03/13/19at 20:11; Admin Dose 0.4 TAB; Start 03/13/19 at 00:00 Acetaminophen/ Hydrocodone Bitart (Strang (5/325)) 1 tab Q4H PRN PO MODERATE PAIN LEVEL 4-6 Last administered on 03/14/19at 15:00; Admin Dose 1 TAB; Start 03/13/19 at 00:30 Acetaminophen/ Hydrocodone Bitart (Strang (5/325)) 2 tab Q4H PRN PO SEVERE PAIN LEVEL 7-10 Last administered on 03/13/19 20:57; Admin Dose 2 TAB; Start 03/13/19 at 00:30 Prednisone (Prednisone) 5 mg DAILY PO Last administered on 03/14/19at 08:20; Admin Dose 5 MG; Start 03/13/19 at 09:00 Isosorbide Dinitrate (Isordil) 20 mg TID PO Last administered on 03/14/19at 14:22; Admin Dose 20 MG; Start 03/13/19 at 15:00 Pantoprazole (Protonix Tab) 40 mg BID@06,18 PO Last administered on 03/14/19 08:30; Admin Dose 40 MG; Start 03/14/19 at 09:00 Buspirone HCl (Buspar) 5 mg BID PO ; Start 03/14/19 at 21:00 Ibuprofen (Motrin) 600 mg Q6H PRN PO MILD PAIN LEVEL 1-3; Start 03/14/19 at 14 :30 Assessment/Plan Hospital Course (Demo Recall) 1. Chest pain, assess for acute coronary syndrome in a patient who has had a catheterization revealing no significant stenosis in September this year - r/o NC - doubt ischemia. 2. Mild thrombocytopenia - defer to hematology. 3. Anemia - no active bleeding now. 4. Shortness of breath at the same time as chest pain, difficulty catching her breath - now better. MARIA INES PRASAD MD Mar 14, 2019 15:48
[2019-03-14] MEDS ORDERED: BUSPIRONE 5 MG TAB PO SCH (21:00)
== END 2019-03-14 17:18 | disposition home or self-care (01) | DRG 313 ==
LOC: E/R 18:21 → TEL 19:57
PROVIDERS: ADMIT Internal Medicine; ATTEND Internal Medicine
DX: R07.9 Chest pain, unspecified (principal); N39.0 Urinary tract infection, site not specified; D64.9 Anemia, unspecified; D69.6 Thrombocytopenia, unspecified; M54.9 Dorsalgia, unspecified; M54.2 Cervicalgia; Z79.82 Long term (current) use of aspirin
CPT/HCPCS: 36415; 71045; 71260; 80053; 80061; 81001; 81025; 83036; 83690; 83735; 84443; 84484; 85025; 93005; 93306; J0696; J1650; J2270; J2405; J7030; J7512; Q9967

== ENCOUNTER 2019-03-30 15:17 | Inpatient (IN) | payer OTHER ==
[~2019-03-30] VITALS: Ht 157.5 cm; Wt 60.3 kg
[~2019-03-30 15:17] MED LIST: ACET325T33 PO; BUSP5TAB2 PO; IBUP-1542 PO; NITR0.4T39 SL; PANT40TA4 PO; PRED5TAB PO
[2019-03-30] MEDS ORDERED: NITR0.4T39 SL (16:11)
[2019-03-30] MEDS ORDERED: METO-448 PO (16:12)
[2019-03-30] MEDS ORDERED: BUPR150T18 PO (16:12)
[2019-03-30] MEDS ORDERED: FLUO10CA17 PO (16:12)
[2019-03-30] MEDS ORDERED: OMEG-158 PO (16:13)
[2019-03-30] MEDS ORDERED: DILT60TA PO (16:16)
[2019-03-30] MEDS ORDERED: RANO500T2 PO (16:17)
[2019-03-30] MEDS ORDERED: BUSP10TA2 PO (16:18)
[2019-03-30] MEDS ORDERED: ISOS30TA67 PO (16:19)
[2019-03-30] MEDS ORDERED: ASPIRIN 325 MG TAB PO STA (16:20)
[2019-03-30] MEDS ORDERED: HALO5TAB23 PO (16:20)
[2019-03-30] MEDS ORDERED: morphine 4 MG/ML VIAL IV STA (16:20)
[2019-03-30] MEDS ORDERED: ONDANSETRON 4 MG INJ IV STA ×2 (16:20→18:40)
[2019-03-30] MEDS ORDERED: QUET100T PO ×2 (16:21)
[2019-03-30] MEDS ORDERED: ASPI81TA52 PO (16:22)
[2019-03-30] MEDS ORDERED: PANTOPRAZOLE 40 MG INJ IV STA (18:15)
[2019-03-30] MEDS ORDERED: HYDROmorphONE 1 MG/ML SYG IV STA (18:40)
[2019-03-30] MEDS: SOD CHLORIDE 0.9% 1,000 ML IV SCH (19:24)
[2019-03-30] MEDS ORDERED: ONDANSETRON 4 MG INJ IV PRN ×2 (19:30→20:00)
[2019-03-30] MEDS ORDERED: NACL 0.9% 3 ML SYG IV SCH (19:30)
[2019-03-30] MEDS ORDERED: ACETAMINOPHEN 325 MG TAB PO PRN (20:00)
--- NOTE | 2019-03-30 20:11 | ERD ---
ER Documentation Chief Complaint Chief Complaint PT with CP radiating to the back , L arm numbness, vomited blood X 2 HPI This is a 43-year-old female presents to the emergency department complaining of chest pain. She indicates that the chest pain has been intermittent for the past 3 days. She states is a pressure-like sensation on the left chest wall and radiates to her left arm. She indicates she was seen yesterday at [facility] emergency room and subsequently discharged. However she states today the chest pain has worsened. She is a past medical history of hypertension and currently states she is not taking any medications that she was instructed to stop the medications due to her history of thrombocytopenia and ITP. In September 2018 the patient had a myocardial infarction and said she was at [facility]. She stated a cardiac stent had been placed. The patient also indicates that today she had 2 episodes of hematemesis. She quantified roughly 1 cc of blood that she had vomited. She denies any back pain. She denies any frequency urgency or dysuria no hematuria. No melanotic stools. She denies any easy bruising or bleeding from gums. She denies any history of alcohol use. ROS All systems reviewed and are negative except as per history of present illness. Medications Home Meds Reported Medications Aspirin (Low Dose Aspirin) 81 Mg Tablet.dr, 81 MG PO DAILY, #30 TAB 03/30/19 Quetiapine Fumarate* (Seroquel*) 100 Mg Tablet, 400 MG PO QHS, #30 TAB 03/30/19 Quetiapine Fumarate* (Seroquel*) 100 Mg Tablet, 100 MG PO QAM, #60 TAB 03/30/19 Haloperidol* (Haldol*) 5 Mg Tab, 10 MG PO QAM, TAB 03/30/19 Isosorbide Mononitrate* (Isosorbide Mononitrate*) 30 Mg Tab.er.24h, 30 MG PO DAILY, TAB 03/30/19 Buspirone Hcl* (Buspirone Hcl*) 10 Mg Tab, 5 MG PO BID, TAB 03/30/19 Ranolazine* (Ranexa*) 500 Mg Tab.sr.12h, 500 MG PO Q12, TAB 03/30/19 Diltiazem Hcl (Cardizem) 60 Mg Tablet, 30 MG PO TID, #90 TAB 03/30/19 Savage-3/Dha/Epa/Fish Oil (FISH OIL 1,000 MG SOFTGEL) 1 Each Capsule, 2 EACH PO BID, CAP 03/30/19 Metoprolol Tartrate* (Lopressor*) 25 Mg Tab, 25 MG PO BID, #60 TAB 03/30/19 Fluoxetine Hcl* (Fluoxetine Hcl*) 10 Mg Capsule, 10 MG PO DAILY, CAP 03/30/19 Bupropion Hcl* (Bupropion Hcl SR*) 150 Mg Tablet.er, 150 MG PO BID, TAB.SA 03/30/19 Nitroglycerin* (Nitrostat*) 0.4 Mg Tab.subl, 0.4 MG SL Q5MIN PRN for CHEST PAIN, BOTTLE 03/30/19 Discontinued Reported Medications Prednisone* (Prednisone*) 5 Mg Tab, 5 MG PO DAILY, TAB 03/12/19 Nitroglycerin* (Nitrostat*) 0.4 Mg Tab.subl, 0.4 MG SL Q5MIN PRN for CHEST PAIN, BOTTLE 03/12/19 Discontinued Scripts Pantoprazole* (Pantoprazole*) 40 Mg Tablet.dr, 40 MG PO DAILY for 14 Days, #14 ok for OTC prilosec/ omeprazole. Prov:FRANCESCO BOYER MD 03/14/19 Ibuprofen* (Ibuprofen*) 600 Mg Tablet, 600 MG PO Q6H PRN for MILD PAIN LEVEL 1-3 for 5 Days, #20 TAB Prov:FRANCESCO BOYER MD 03/14/19 Buspirone Hcl* (Buspirone Hcl*) 5 Mg Tab, 5 MG PO BID for 14 Days, #30 TAB Prov:FRANCESCO BOYER MD 03/14/19 Acetaminophen* (Tylenol*) 325 Mg Tablet, 650 MG PO Q6H PRN for .PAIN 1-3 OR TEMP for 1 Day, TAB Prov:FRANCESCO BOYER MD 03/14/19 Allergies Allergies: Coded Allergies: No Known Drug Allergy (Unverified Allergy, Unknown, 03/30/19) PMhx/Soc History of Surgery: Yes (ANGIOPLASTY SEPTEMBER 2018) Anesthesia Reaction: No Hx Neurological Disorder: No Hx Respiratory Disorders: No Hx Cardiac Disorders: Yes (CAD) Hx Psychiatric Problems: No Hx Miscellaneous Medical Probl: No Hx Alcohol Use: No Hx Substance Use: No Hx Tobacco Use: No Smoking Status: Never smoker Physical Exam Vitals Vital Signs Date Temp Pulse Resp B/P (MAP) Pulse Ox O2 O2 Flow FiO2 Time Delivery Rate 03/30/19 98.6 84 17 138/76 100 Room Air 16:09 (96) 03/30/19 99.3 89 14 130/59 99 15:22 (82) Physical Exam Constitutional:Well-developed. Well-nourished. HEENT:Normocephalic. Atraumatic.Pupils were equal round reactive to light. Moist mucous membranes.No tonsillar exudates. No conjunctival pallor Neck: No nuchal rigidity. No lymphadenopathy. No posterior cervical spine tenderness or step-offs. Respiratory: Not using accessory muscles of respiration.Lungs were clear to auscultation bilaterally. No rhonchi. No rales. No wheezing. Cardiovascular: Regular rate regular rhythm.No murmurs. No rubs were appreciated.S1, S2 normal. Distal pulses are palpable 2+ bilaterally. GI: Abdomen was soft. Nontender. Non Distended. No pulsatile abdominal masses or bruits. No rebound. No guarding. Bowel sounds were present and normal. Muscle skeletal: Full range of motion of both the upper and lower extremities bilaterally.Normal muscle tone.No assymetrical calf tenderness or swelling. Skin: No petechia, no purpura. No lesions on the palms or the soles of the feet. No maculopapular rash. NEURO: Patient was alert, awake, orientated x3.No facial droop. Gait observed and normal with no ataxia.Speech had regular rate and rhythm. No focal neurological deficits. Result Diagram: 03/30/19 1631 03/30/19 1630 Results 24 hrs Laboratory Tests Test 03/30/19 16:30 03/30/19 16:31 03/30/19 19:09 Prothrombin Time 12.4 Sec Prothrombin Time Ratio 1.0 INR International 0.91 Normalized Ratio Activated Partial Thromboplast 28.2 Sec Time Sodium Level 139 mmol/L Potassium Level 3.9 mmol/L Chloride Level 105 mmol/L Carbon Dioxide Level 25 mmol/L Anion Gap 9 Blood Urea Nitrogen 10 mg/dl Creatinine 0.59 mg/dl Est Glomerular Filtrat > 60 mL/min Rate mL/min Glucose Level 123 mg/dl Calcium Level 9.5 mg/dl Total Bilirubin 0.5 mg/dl Direct Bilirubin 0.00 mg/dl Indirect Bilirubin 0.5 mg/dl Aspartate Amino 36 IU/L Transf (AST/SGOT) Alanine 49 IU/L Aminotransferase (ALT/SGPT) Alkaline Phosphatase 110 IU/L Creatine Kinase 41 IU/L Creatine Kinase Index 1.0 Creatinine Kinase MB (Mass) 0.39 ng/ml Troponin I 0.034 ng/ml B-Type Natriuretic Peptide 271 PG/ML Total Protein 8.3 g/dl Albumin 4.1 g/dl Globulin 4.20 g/dl Albumin/Globulin Ratio 0.97 Lipase 39 U/L White Blood Count 13.5 10^3/ul Red Blood Count 4.00 10^6/ul Hemoglobin 12.1 g/dl Hematocrit 34.9 % Mean Corpuscular Volume 87.3 fl Mean Corpuscular Hemoglobin 30.3 pg Mean Corpuscular 34.7 g/dl Hemoglobin Concent Red Cell Distribution Width 14.6 % Platelet Count 50 10^3/UL Mean Platelet Volume 8.8 fl Immature Granulocytes % 0.400 % Neutrophils % % Segmented Neutrophils % (Manual) 76 % Band Neutrophils % (Manual) 1 % Lymphocytes % % Lymphocytes % (Manual) 17 % Monocytes % % Monocytes % (Manual) 4 % Eosinophils % % Eosinophils % (Manual) 2 % Basophils % % Nucleated Red Blood Cells % 0.0 /100WBC Immature Granulocytes # 0.050 10^3/ul Neutrophils # 10^3/ul Neutrophils # (Manual) 10.3 10^3/ul Band Neutrophils # 0.1 10^3/ul Lymphocytes (Manual) 2.2 10^3/ul Lymphocytes # 10^3/ul Monocytes # 10^3/ul Monocytes # (Manual) 0.5 10^3/ul Eosinophils # 10^3/ul Basophils # 10^3/ul Nucleated Red Blood Cells # 10^3/ul Platelet Estimate DECREASED Polychromasia 1+ Anisocytosis 1+ Microcytosis 1+ Urine Color YELLOW Urine Clarity CLEAR Urine pH 7.0 Urine Specific [place] 1.009 Urine Ketones NEGATIVE mg/dL Urine Nitrite NEGATIVE mg/dL Urine Bilirubin NEGATIVE mg/dL Urine Urobilinogen NEGATIVE mg/dL Urine Leukocyte Esterase NEGATIVE Lul/ul Urine Hemoglobin NEGATIVE mg/dL Urine Glucose NEGATIVE mg/dL Urine Total Protein NEGATIVE mg/dl Current Medications Medications Dose Sig/Michael Start Time Status Last (Trade) Ordered Route PRN Stop Time Admin Dose Reason Admin Aspirin 325 mg ONCE STAT 03/30/19 DC 03/30/19 (Aspirin) PO 16:20 16:38 03/30/19 16:22 Morphine 4 mg ONCE STAT 03/30/19 DC 03/30/19 Sulfate IV 16:20 16:38 (morphine) 03/30/19 16:22 Ondansetron 4 mg ONCE STAT 03/30/19 DC 03/30/19 HCl (Zofran IV 16:20 16:38 Inj) 03/30/19 16:22 40 mg ONCE STAT 03/30/19 DC 03/30/19 Pantoprazole IV 18:15 19:00 (Protonix 03/30/19 18:22 Iv) 1 mg ONCE STAT 03/30/19 DC 03/30/19 Hydromorphone IV 18:40 19:00 HCl 03/30/19 18:41 (Dilaudid) Ondansetron 4 mg ONCE STAT 03/30/19 DC 03/30/19 HCl (Zofran IV 18:40 19:00 Inj) 03/30/19 18:41 Sodium 1,000 ml @ [id number] IV 03/30/19 03/30/19 Chloride 75 mls/hr 19:04 19:24 IV Flush 3 ml PER 03/30/19 (NS 3 ml) PROTOCOL IV 19:30 Ondansetron 4 mg Q6H PRN 03/30/19 HCl (Zofran IV 19:30 Inj) NAUSEA/VOMITI NG Morphine 2 mg Q4H PRN 03/30/19 Sulfate IV .PAIN 19:30 (morphine) 7-10 40 mg DAILY@06 03/31/19 Pantoprazole IV 06:00 (Protonix Iv) Ondansetron 4 mg ER BRIDGE 03/30/19 HCl (Zofran PRN IV 20:00 Inj) NAUSEA/VOMITI 03/31/19 19:59 NG 650 mg ER BRIDGE 03/30/19 Acetaminophen PRN PO 20:00 (Tylenol .MILD PAIN 03/31/19 19:59 Tab) 1-3 OR TEMP Procedures/MDM The patient presented to the emergency department with chest pain. My clinical evaluation and workup was to distinguish minor causes of chest pain from acute life threatening conditions such as myocardial infarction, pulmonary embolism, aortic dissection, esophageal rupture, cardiac tamponade. The patient was placed on a cardiac cath lab technologist and continuous pulse oximetry. IV access established by nursing staff. The patient received aspirin but there is no improvement of her symptoms. Therefore she was given intravenous morphine and Zofran 12 Lead EKG tracing ordered and reviewed by myself showed: Normal sinus rhythm of 88 bpm and no arrhythmia. LA interval normal. QRS duration normal. No ST segment elevation No ST segment depression. No changes consistent with acute ischemia. The patient was thrombocytopenic with a platelet count of 50,000. The patient was not anemic. The patient will be admitted for observation to undergo serial twelve-lead EKG tracings and cardiac set of enzymes. Type and cross was obtained. She was started on IV Protonix. She had no active hematemesis while in the emergency department. She will be admitted to the hospitalist. Departure Diagnosis: Primary Impression: Chest pain Chest pain type: unspecified Qualified Codes: R07.9 - Chest pain, unspecified Additional Impressions: Hematemesis of unknown cause Thrombocytopenia Condition: Serious SANGITA GLOVER MD Mar 30, 2019 20:11
[2019-03-30 21:00] VITALS: BP 123/81; PULSE 82; RESP 18
[2019-03-30 21:12] VITALS: Ht 157.5 cm; Wt 60.3 kg
[2019-03-30] MEDS: morphine 2 MG INJ IV PRN (22:36)
--- NOTE | 2019-03-30 23:08 | HP ---
Date/Time of Note Date/Time of Note DATE: 03/30/19 TIME: 23:08 Assessment/Plan VTE Prophylaxis Pharmacological prophylaxis: heparin Lines/Catheters IV Catheter Type (from Nrsg): Saline Lock Assessment/Plan Assessment/Plan 1. Chest pain: Rule out ACS -Patient stated that she was diagnosed with MO in the September of this year at [facility]. She had a cardiac cath, but does not know the results or whether or not the stent was placed. She was not placed on antiplatelets or statin. Only medication she was discharged with was nitroglycerin -Continue telemetry monitoring -2D echo -No aspirin (see #2) -Obtain records from [place] 2. Hematemesis and dark stool -PPI -GI consult Result Diagram: 03/30/19 1631 03/30/19 1630 Results 24hrs Laboratory Tests Test 03/30/19 16:30 03/30/19 16:31 03/30/19 19:09 Prothrombin Time 12.4 Prothrombin Time Ratio 1.0 INR International Normalized Ratio 0.91 Activated Partial Thromboplast Time 28.2 Sodium Level 139 Potassium Level 3.9 Chloride Level 105 Carbon Dioxide Level 25 Anion Gap 9 Blood Urea Nitrogen 10 Creatinine 0.59 Est Glomerular Filtrat Rate mL/min > 60 Glucose Level 123 Calcium Level 9.5 Total Bilirubin 0.5 Direct Bilirubin 0.00 Indirect Bilirubin 0.5 Aspartate Amino Transf (AST/SGOT) 36 Alanine Aminotransferase (ALT/SGPT) 49 Alkaline Phosphatase 110 Creatine Kinase 41 Creatine Kinase Index 1.0 Creatinine Kinase MB (Mass) 0.39 Troponin I 0.034 B-Type Natriuretic Peptide 271 H Total Protein 8.3 H Albumin 4.1 Globulin 4.20 H Albumin/Globulin Ratio 0.97 Lipase 39 White Blood Count 13.5 #H Red Blood Count 4.00 L Hemoglobin 12.1 Hematocrit 34.9 L Mean Corpuscular Volume 87.3 Mean Corpuscular Hemoglobin 30.3 Mean Corpuscular Hemoglobin Concent 34.7 Red Cell Distribution Width 14.6 H Platelet Count 50 #L Mean Platelet Volume 8.8 Immature Granulocytes % 0.400 Neutrophils % Segmented Neutrophils % (Manual) 76 Band Neutrophils % (Manual) 1 Lymphocytes % Lymphocytes % (Manual) 17 Monocytes % Monocytes % (Manual) 4 Eosinophils % Eosinophils % (Manual) 2 Basophils % Nucleated Red Blood Cells % 0.0 Immature Granulocytes # 0.050 H Neutrophils # Neutrophils # (Manual) 10.3 H Band Neutrophils # 0.1 Lymphocytes (Manual) 2.2 Lymphocytes # Monocytes # Monocytes # (Manual) 0.5 Eosinophils # Basophils # Nucleated Red Blood Cells # Platelet Estimate DECREASED Polychromasia 1+ Anisocytosis 1+ Microcytosis 1+ Urine Color YELLOW Urine Clarity CLEAR Urine pH 7.0 Urine Specific [place] 1.009 Urine Ketones NEGATIVE Urine Nitrite NEGATIVE Urine Bilirubin NEGATIVE Urine Urobilinogen NEGATIVE Urine Leukocyte Esterase NEGATIVE Urine Hemoglobin NEGATIVE Urine Glucose NEGATIVE Urine Total Protein NEGATIVE HPI/ROS Admit Date/Time Admit Date/Time Mar 30, 2019 at 19:38 Hx of Present Illness Patient is a 43-year-old female with self-reported history of MO, diagnosed at [place] in September of this year presented to the ER complaining of chest pain. Pain is left-sided, pressure-like was radiating to her left shoulder. It is worse with exertion. She also reported associated shortness of breath. She said that she had a cardiac cath in September at [facility], but she does not know the results. She was not placed on any antiplatelets, statin or BB. Only medication that she takes at home is as needed sublingual nitroglycerin. She said that she took the nitro, but chest pain persists. Patient also reported that as she had 2 episodes of hematemesis described as coffee-ground/dark with a little bit of blood. For a few days, she also had dark stool. Denied a history of gastritis or PUD. Patient presents the ER, vitals were stable. First troponin is negative and EKG without ST-T wave abnormalities. PMH/Family/Social Past Medical History Past Surgical Hx: other (see HPI) Family History Significant Family History: no pertinent family hx Social History Alcohol Use: none Smoking Status: Never smoker Drug Use: none Exam Constitutional: No acute distress Head: normocephalic, atraumatic Eyes: EOMI, PERRL Respiratory: no distress Cardiovascular: regular rate and rhythm Gastrointestinal: soft Extremities: normal pulses Medications Current Medications Sodium Chloride 1,000 ml @ 75 mls/hr [id number] IV Last administered on 03/30/19at 19:24; Admin Dose 75 MLS/HR; Start 03/30/19 at 19:04 IV Flush (NS 3 ml) 3 ml PER PROTOCOL IV ; Start 03/30/19 at 19:30 Ondansetron HCl (Zofran Inj) 4 mg Q6H PRN IV NAUSEA/VOMITING; Start 03/30/19 at 19:30 Morphine Sulfate (morphine) 2 mg Q4H PRN IV .PAIN 7-10 Last administered on 03/30/19at 22:36; Admin Dose 2 MG; Start 03/30/19 at 19:30 Pantoprazole (Protonix Iv) 40 mg DAILY@06 IV ; Start 03/31/19 at 06:00 Ondansetron HCl (Zofran Inj) 4 mg ER BRIDGE PRN IV NAUSEA/VOMITING; Start 03/30/19 at 20:00; Stop 03/31/19 at 19:59 Acetaminophen (Tylenol Tab) 650 mg ER BRIDGE PRN PO .MILD PAIN 1-3 OR TEMP; Start 03/30/19 at 20:00; Stop 03/31/19 at 19:59 Coded Allergies: No Known Drug Allergy (Unverified Allergy, Unknown, 03/30/19) Past Surgical History Past Surgical Hx: other Family History Significant Family History: no pertinent family hx Social History Smoking Status: Never smoker Exam/Review of Systems Vital Signs Vitals Vital Signs Date Temp Pulse Resp B/P (MAP) Pulse Ox O2 O2 Flow FiO2 Time Delivery Rate 03/30/19 98.0 82 18 123/81 95 Room Air 21:00 (95) VIDAL GARNER MD Mar 30, 2019 23:08
[2019-03-31] VITALS: BP 123/59; PULSE 86; RESP 18
[2019-03-31] MEDS: morphine 2 MG INJ IV PRN ×5 (02:27→19:58)
[2019-03-31 04:00] VITALS: BP 125/60; PULSE 95; RESP 18
[2019-03-31] MEDS ORDERED: PANTOPRAZOLE 40 MG INJ IV SCH (06:00)
[2019-03-31] MEDS: SOD CHLORIDE 0.9% 1,000 ML IV SCH ×2 (07:26→20:54)
[2019-03-31 07:44] VITALS: BP 121/56; PULSE 89; RESP 20
[2019-03-31 12:15] VITALS: BP 114/61; PULSE 76; RESP 18
--- NOTE | 2019-03-31 13:52 | CONS ---
Assessment/Plan Assessment/Plan Hospital Course (Demo Recall) Summary Assessment and Plan: Assessment: Hematemesis/melena -[place]ulma[place] tear versus PUD versus hemorrhagic gastritis versus other Chest Pain Leukocytosis Hypertension History of of IA in September status post PCI unclear if stent was placed Plan: Cardiac clearance EGD near future Monitor H/H transfuse as needed for HGB less than 7.5 PPI twice daily we will add Carafate 1 g p.o. 4 times daily Recommend elise-culture Patient seen in collaboration with Dr. Josue CC: DAREK JOSUE MD ; Consultation Date/Type/Reason Admit Date/Time Mar 30, 2019 at 19:38 Date of Consultation: Mar 31, 2019 Type of Consult GI Reason for Consultation Hematemesis/melena Date/Time of Note DATE: 03/31/19 TIME: 13:48 Hx of Present Illness A 43-year-old female past medical history of hypertension, thrombus cytopenia, previous IA in September unclear if a stent was placed at that time who presented to the hospital with complaints of chest pain and hematemesis as well as melena. Patient was previously evaluated at [facility] and was discharged however her chest pain became progressively worse associated with 2 different episodes of hematemesis mixed with coffee-ground emesis. At [facility] work-up has included a chest x-ray showing no acute pulmonary abnormality hematology with initial evaluation shows leukocytosis of 13 point 5 repeat WBC this a.m. shows 20.5 platelet count is 34,000 today a UA was completed and is normal. Her INR 0.91. Time evaluation chest pain/epigastric pain has resolved no further episodes of melena no complaints of hematochezia or abdominal pain patient is never had an endoscopic evaluation Past Medical History Home Meds Reported Medications Aspirin (Low Dose Aspirin) 81 Mg Tablet., 81 MG PO DAILY, #30 TAB 03/30/19 Quetiapine Fumarate* (Seroquel*) 100 Mg Tablet, 400 MG PO QHS, #30 TAB 03/30/19 Quetiapine Fumarate* (Seroquel*) 100 Mg Tablet, 100 MG PO QAM, #60 TAB 03/30/19 Haloperidol* (Haldol*) 5 Mg Tab, 10 MG PO QAM, TAB 03/30/19 Isosorbide Mononitrate* (Isosorbide Mononitrate*) 30 Mg Tab.er.24h, 30 MG PO DAILY, TAB 03/30/19 Buspirone Hcl* (Buspirone Hcl*) 10 Mg Tab, 5 MG PO BID, TAB 03/30/19 Ranolazine* (Ranexa*) 500 Mg Tab.sr.12h, 500 MG PO Q12, TAB 03/30/19 Diltiazem Hcl (Cardizem) 60 Mg Tablet, 30 MG PO TID, #90 TAB 03/30/19 [place]-3/Dha/Epa/Fish Oil (FISH OIL 1,000 MG SOFTGEL) 1 Each Capsule, 2 EACH PO BID, CAP 03/30/19 Metoprolol Tartrate* (Lopressor*) 25 Mg Tab, 25 MG PO BID, #60 TAB 03/30/19 Fluoxetine Hcl* (Fluoxetine Hcl*) 10 Mg Capsule, 10 MG PO DAILY, CAP 03/30/19 Bupropion Hcl* (Bupropion Hcl SR*) 150 Mg Tablet.er, 150 MG PO BID, TAB.SA 03/30/19 Nitroglycerin* (Nitrostat*) 0.4 Mg Tab.subl, 0.4 MG SL Q5MIN PRN for CHEST PAIN, BOTTLE 03/30/19 Discontinued Reported Medications Prednisone* (Prednisone*) 5 Mg Tab, 5 MG PO DAILY, TAB 03/12/19 Nitroglycerin* (Nitrostat*) 0.4 Mg Tab.subl, 0.4 MG SL Q5MIN PRN for CHEST PAIN, BOTTLE 03/12/19 Discontinued Scripts Pantoprazole* (Pantoprazole*) 40 Mg Tablet.dr, 40 MG PO DAILY for 14 Days, #14 ok for OTC prilosec/ omeprazole. Prov:FRANCESCO BOYER MD 03/14/19 Ibuprofen* (Ibuprofen*) 600 Mg Tablet, 600 MG PO Q6H PRN for MILD PAIN LEVEL 1-3 for 5 Days, #20 TAB Prov:FRANCESCO BOYER MD 03/14/19 Buspirone Hcl* (Buspirone Hcl*) 5 Mg Tab, 5 MG PO BID for 14 Days, #30 TAB Prov:FRANCESCO BOYER MD 03/14/19 Acetaminophen* (Tylenol*) 325 Mg Tablet, 650 MG PO Q6H PRN for .PAIN 1-3 OR TEMP for 1 Day, TAB Prov:FRANCESCO BOYER MD 03/14/19 Medications Current Medications Sodium Chloride 1,000 ml @ 75 mls/hr [id number] IV Last administered on 03/31/19at 07:26; Admin Dose 75 MLS/HR; Start 03/30/19 at 19:04 IV Flush (NS 3 ml) 3 ml PER PROTOCOL IV ; Start 03/30/19 at 19:30 Ondansetron HCl (Zofran Inj) 4 mg Q6H PRN IV NAUSEA/VOMITING; Start 03/30/19 at 19:30 Morphine Sulfate (morphine) 2 mg Q4H PRN IV .PAIN 7-10 Last administered on 03/31/19at 09:41; Admin Dose 2 MG; Start 03/30/19 at 19:30 Pantoprazole (Protonix Iv) 40 mg DAILY@06 IV Last administered on 03/31/19at 06:13; Admin Dose 40 MG; Start 03/31/19 at 06:00 Ondansetron HCl (Zofran Inj) 4 mg ER BRIDGE PRN IV NAUSEA/VOMITING; Start 03/30/19 at 20:00; Stop 03/31/19 at 19:59 Acetaminophen (Tylenol Tab) 650 mg ER BRIDGE PRN PO .MILD PAIN 1-3 OR TEMP; Start 03/30/19 at 20:00; Stop 03/31/19 at 19:59 Allergies: Coded Allergies: No Known Drug Allergy (Unverified Allergy, Unknown, 03/30/19) Past Surgical History Past Surgical Hx: other Social History Smoking Status: Never smoker Exam/Review of Systems Exam Vitals Vital Signs Date Temp Pulse Resp B/P (MAP) Pulse Ox O2 O2 Flow FiO2 Time Delivery Rate 03/31/19 98.1 76 18 114/61 96 12:15 (78) 03/30/19 Room Air 21:00 Intake and Output 03/30/19 03/30/19 03/31/19 1515:00 23:00 07:00 IntakeIntake Total 240 ml BalanceBalance 240 ml Exam PHYSICAL EXAMINATION: GENERAL: Well developed, well nourished, alert & oriented x 3, in no acute distress SKIN: No lesions HEAD: Normocephalic, atraumatic, no tenderness. EYES: Pupils equal reactive to light and accommodation, full extraocular movem ents, sclera clear, non-icteric, no discharge. EARS/NOSE AND THROAT: Ears normal, nose normal, oropharynx normal, oral membranes well hydrated without lesions. NECK: Supple, no masses CHEST: Inspection within normal limits. CARDIOVASCULAR: Heart: Regular rate and rhythm RESPIRATORY: Lungs clear to auscultation GASTROINTESTINAL AND LIVER: Abdomen: Soft, non tenderness, non-distended, no hernias, no masses, no organomegaly, no ascites, no guarding, no rebound tenderness, normoactive bowel sounds. Rectal: Deferred. EXTREMITIES: No cyanosis, clubbing or edema. Results Result Diagram: 03/31/19 0511 03/31/19 0511 Results 24hrs Laboratory Tests Test 03/30/19 16:30 03/30/19 16:31 03/30/19 19:09 03/30/19 22:31 Prothrombin Time 12.4 Prothrombin Time 1.0 Ratio INR International 0.91 Normalized Ratio Activated 28.2 Partial Thromboplast Time Sodium Level 139 Potassium Level 3.9 Chloride Level 105 Carbon Dioxide Level 25 Anion Gap 9 Blood Urea Nitrogen 10 Creatinine 0.59 Est Glomerular > 60 Filtrat Rate mL/min Glucose Level 123 Calcium Level 9.5 Total Bilirubin 0.5 Direct Bilirubin 0.00 Indirect Bilirubin 0.5 Aspartate Amino 36 Transf (AST/SGOT) Alanine 49 Aminotransferase (AL T/SGPT) Alkaline Phosphatase 110 Creatine Kinase 41 Creatine Kinase 1.0 Index Creatinine Kinase MB 0.39 (Mass) Troponin I 0.034 0.042 B-Type Natriuretic 271 H Peptide Total Protein 8.3 H Albumin 4.1 Globulin 4.20 H Albumin/Globulin 0.97 Ratio Lipase 39 White Blood Count 13.5 #H Red Blood Count 4.00 L Hemoglobin 12.1 Hematocrit 34.9 L Mean Corpuscular 87.3 Volume Mean Corpuscular 30.3 Hemoglobin Mean Corpuscular 34.7 Hemoglobin Concent Red Cell 14.6 H Distribution Width Platelet Count 50 #L Mean Platelet Volume 8.8 Immature 0.400 Granulocytes % Neutrophils % Segmented 76 Neutrophils % (Manual) Band Neutrophils % 1 (Manual) Lymphocytes % Lymphocytes % 17 (Manual) Monocytes % Monocytes % (Manual) 4 Eosinophils % Eosinophils % 2 (Manual) Basophils % Nucleated Red Blood 0.0 Cells % Immature 0.050 H Granulocytes # Neutrophils # Neutrophils # 10.3 H (Manual) Band Neutrophils # 0.1 Lymphocytes (Manual) 2.2 Lymphocytes # Monocytes # Monocytes # (Manual) 0.5 Eosinophils # Basophils # Nucleated Red Blood Cells # Platelet Estimate DECREASED Polychromasia 1+ Anisocytosis 1+ Microcytosis 1+ Urine Color YELLOW Urine Clarity CLEAR Urine pH 7.0 Urine Specific 1.009 [place] Urine Ketones NEGATIVE Urine Nitrite NEGATIVE Urine Bilirubin NEGATIVE Urine Urobilinogen NEGATIVE Urine Leukocyte NEGATIVE Esterase Urine Hemoglobin NEGATIVE Urine Glucose NEGATIVE Urine Total Protein NEGATIVE Test 03/31/19 00:13 03/31/19 05:11 03/31/19 05:12 03/31/19 10:19 Hemoglobin 12.3 12.4 Hematocrit 35.9 L 35.9 L White Blood Count 20.5 #H Red Blood Count 4.05 L Mean Corpuscular 88.6 Volume Mean Corpuscular 30.6 Hemoglobin Mean Corpuscular 34.5 Hemoglobin Concent Red Cell 14.2 Distribution Width Platelet Count 34 #L Mean Platelet Volume 9.5 Immature 0.700 H Granulocytes % Neutrophils % 85.7 H Lymphocytes % 8.5 L Monocytes % 4.4 Eosinophils % 0.4 Basophils % 0.3 Nucleated Red Blood 0.0 Cells % Immature 0.150 H Granulocytes # Neutrophils # 17.6 H Lymphocytes # 1.7 Monocytes # 0.9 Eosinophils # 0.1 Basophils # 0.1 Nucleated Red Blood 0.0 Cells # Sodium Level 141 Potassium Level 3.9 Chloride Level 106 Carbon Dioxide Level 24 Anion Gap 11 Blood Urea Nitrogen 10 Creatinine 0.59 Est Glomerular > 60 Filtrat Rate mL/min Glucose Level 192 Hemoglobin A1c 5.6 Calcium Level 9.0 Magnesium Level 1.9 Total Bilirubin 0.4 Direct Bilirubin 0.00 Indirect Bilirubin 0.4 Aspartate Amino 30 Transf (AST/SGOT) Alanine 36 Aminotransferase (AL T/SGPT) Alkaline Phosphatase 104 Total Protein 7.6 Albumin 3.8 Globulin 3.80 H Albumin/Globulin 1.00 Ratio Triglycerides Level 364 H Cholesterol Level 183 LDL Cholesterol, 87 Calculated HDL Cholesterol 23 L Cholesterol/HDL 7.9 Ratio Thyroid Stimulating 1.090 Hormone (TSH) Troponin I 0.051 0.031 Medications Medication Current Medications Sodium Chloride 1,000 ml @ 75 mls/hr [id number] IV Last administered on 03/31/19at 07:26; Admin Dose 75 MLS/HR; Start 03/30/19 at 19:04 IV Flush (NS 3 ml) 3 ml PER PROTOCOL IV ; Start 03/30/19 at 19:30 Ondansetron HCl (Zofran Inj) 4 mg Q6H PRN IV NAUSEA/VOMITING; Start 03/30/19 at 19:30 Morphine Sulfate (morphine) 2 mg Q4H PRN IV .PAIN 7-10 Last administered on 03/31/19at 09:41; Admin Dose 2 MG; Start 03/30/19 at 19:30 Pantoprazole (Protonix Iv) 40 mg DAILY@06 IV Last administered on 03/31/19at 06:13; Admin Dose 40 MG; Start 03/31/19 at 06:00 Ondansetron HCl (Zofran Inj) 4 mg ER BRIDGE PRN IV NAUSEA/VOMITING; Start 03/30/19 at 20:00; Stop 03/31/19 at 19:59 Acetaminophen (Tylenol Tab) 650 mg ER BRIDGE PRN PO .MILD PAIN 1-3 OR TEMP; Start 03/30/19 at 20:00; Stop 03/31/19 at 19:59 STEVIE BARAHONA Mar 31, 2019 13:52
--- NOTE | 2019-03-31 14:30 | PN ---
Date/Time of Note Date/Time of Note DATE: 03/31/19 TIME: 14:28 Assessment/Plan VTE Prophylaxis SCD applied (from Nsg): Yes Pharmacological prophylaxis: NA/contraindicated Pharm contraindication: low risk/ambulating Lines/Catheters IV Catheter Type (from Nrsg): Peripheral IV Assessment/Plan Hospital Course Assessment and plan 1. Chest pain. Rule out ACS. Echocardiogram pending. With reported suspect f or now. Solution Professional to follow. Patient does report having exertional chest pain. Monitor on telemetry. 2. Hematemesis. Communications Designer was consulted. Continue PPI medication. Monitor H&H. Transfuse blood products as needed. Disposition and plan. Monitor H&H. Awaiting cardiac eval. Monitor in-house. Discussed POC with Dr. Marquez Result Diagram: 03/31/19 0511 03/31/19 0511 Results 24hrs Laboratory Tests Test 03/30/19 16:30 03/30/19 16:31 03/30/19 19:09 03/30/19 22:31 Prothrombin Time 12.4 Prothrombin Time 1.0 Ratio INR International 0.91 Normalized Ratio Activated 28.2 Partial Thromboplast Time Sodium Level 139 Potassium Level 3.9 Chloride Level 105 Carbon Dioxide Level 25 Anion Gap 9 Blood Urea Nitrogen 10 Creatinine 0.59 Est Glomerular > 60 Filtrat Rate mL/min Glucose Level 123 Calcium Level 9.5 Total Bilirubin 0.5 Direct Bilirubin 0.00 Indirect Bilirubin 0.5 Aspartate Amino 36 Transf (AST/SGOT) Alanine 49 Aminotransferase (AL T/SGPT) Alkaline Phosphatase 110 Creatine Kinase 41 Creatine Kinase 1.0 Index Creatinine Kinase MB 0.39 (Mass) Troponin I 0.034 0.042 B-Type Natriuretic 271 H Peptide Total Protein 8.3 H Albumin 4.1 Globulin 4.20 H Albumin/Globulin 0.97 Ratio Lipase 39 White Blood Count 13.5 #H Red Blood Count 4.00 L Hemoglobin 12.1 Hematocrit 34.9 L Mean Corpuscular 87.3 Volume Mean Corpuscular 30.3 Hemoglobin Mean Corpuscular 34.7 Hemoglobin Concent Red Cell 14.6 H Distribution Width Platelet Count 50 #L Mean Platelet Volume 8.8 Immature 0.400 Granulocytes % Neutrophils % Segmented 76 Neutrophils % (Manual) Band Neutrophils % 1 (Manual) Lymphocytes % Lymphocytes % 17 (Manual) Monocytes % Monocytes % (Manual) 4 Eosinophils % Eosinophils % 2 (Manual) Basophils % Nucleated Red Blood 0.0 Cells % Immature 0.050 H Granulocytes # Neutrophils # Neutrophils # 10.3 H (Manual) Band Neutrophils # 0.1 Lymphocytes (Manual) 2.2 Lymphocytes # Monocytes # Monocytes # (Manual) 0.5 Eosinophils # Basophils # Nucleated Red Blood Cells # Platelet Estimate DECREASED Polychromasia 1+ Anisocytosis 1+ Microcytosis 1+ Urine Color YELLOW Urine Clarity CLEAR Urine pH 7.0 Urine Specific 1.009 [place] Urine Ketones NEGATIVE Urine Nitrite NEGATIVE Urine Bilirubin NEGATIVE Urine Urobilinogen NEGATIVE Urine Leukocyte NEGATIVE Esterase Urine Hemoglobin NEGATIVE Urine Glucose NEGATIVE Urine Total Protein NEGATIVE Test 03/31/19 00:13 03/31/19 05:11 03/31/19 05:12 03/31/19 10:19 Hemoglobin 12.3 12.4 Hematocrit 35.9 L 35.9 L White Blood Count 20.5 #H Red Blood Count 4.05 L Mean Corpuscular 88.6 Volume Mean Corpuscular 30.6 Hemoglobin Mean Corpuscular 34.5 Hemoglobin Concent Red Cell 14.2 Distribution Width Platelet Count 34 #L Mean Platelet Volume 9.5 Immature 0.700 H Granulocytes % Neutrophils % 85.7 H Lymphocytes % 8.5 L Monocytes % 4.4 Eosinophils % 0.4 Basophils % 0.3 Nucleated Red Blood 0.0 Cells % Immature 0.150 H Granulocytes # Neutrophils # 17.6 H Lymphocytes # 1.7 Monocytes # 0.9 Eosinophils # 0.1 Basophils # 0.1 Nucleated Red Blood 0.0 Cells # Sodium Level 141 Potassium Level 3.9 Chloride Level 106 Carbon Dioxide Level 24 Anion Gap 11 Blood Urea Nitrogen 10 Creatinine 0.59 Est Glomerular > 60 Filtrat Rate mL/min Glucose Level 192 Hemoglobin A1c 5.6 Calcium Level 9.0 Magnesium Level 1.9 Total Bilirubin 0.4 Direct Bilirubin 0.00 Indirect Bilirubin 0.4 Aspartate Amino 30 Transf (AST/SGOT) Alanine 36 Aminotransferase (AL T/SGPT) Alkaline Phosphatase 104 Total Protein 7.6 Albumin 3.8 Globulin 3.80 H Albumin/Globulin 1.00 Ratio Triglycerides Level 364 H Cholesterol Level 183 LDL Cholesterol, 87 Calculated HDL Cholesterol 23 L Cholesterol/HDL 7.9 Ratio Thyroid Stimulating 1.090 Hormone (TSH) Troponin I 0.051 0.031 Subjective 24 Hr Interval Summary Free Text/Dictation patient reports having exertional chest pain. Exam/Review of Systems Exam Vitals Vital Signs Date Temp Pulse Resp B/P (MAP) Pulse Ox O2 O2 Flow FiO2 Time Delivery Rate 03/31/19 98.1 76 18 114/61 96 12:15 (78) 03/30/19 Room Air 21:00 Intake and Output 03/30/19 03/30/19 03/31/19 1515:00 23:00 07:00 IntakeIntake Total 240 ml BalanceBalance 240 ml Constitutional: alert, oriented Head: normocephalic Respiratory: clear to auscultation, normal air movement Cardiovascular: other (regular rate ) Gastrointestinal: soft, non-tender Neurological: FIELD STAFF II-XII intact, nl mental status, nl speech Skin: nl turgor Results Results 24hrs Laboratory Tests Test 03/30/19 16:30 03/30/19 16:31 03/30/19 19:09 03/30/19 22:31 Prothrombin Time 12.4 Prothrombin Time 1.0 Ratio INR International 0.91 Normalized Ratio Activated 28.2 Partial Thromboplast Time Sodium Level 139 Potassium Level 3.9 Chloride Level 105 Carbon Dioxide Level 25 Anion Gap 9 Blood Urea Nitrogen 10 Creatinine 0.59 Est Glomerular > 60 Filtrat Rate mL/min Glucose Level 123 Calcium Level 9.5 Total Bilirubin 0.5 Direct Bilirubin 0.00 Indirect Bilirubin 0.5 Aspartate Amino 36 Transf (AST/SGOT) Alanine 49 Aminotransferase (AL T/SGPT) Alkaline Phosphatase 110 Creatine Kinase 41 Creatine Kinase 1.0 Index Creatinine Kinase MB 0.39 (Mass) Troponin I 0.034 0.042 B-Type Natriuretic 271 H Peptide Total Protein 8.3 H Albumin 4.1 Globulin 4.20 H Albumin/Globulin 0.97 Ratio Lipase 39 White Blood Count 13.5 #H Red Blood Count 4.00 L Hemoglobin 12.1 Hematocrit 34.9 L Mean Corpuscular 87.3 Volume Mean Corpuscular 30.3 Hemoglobin Mean Corpuscular 34.7 Hemoglobin Concent Red Cell 14.6 H Distribution Width Platelet Count 50 #L Mean Platelet Volume 8.8 Immature 0.400 Granulocytes % Neutrophils % Segmented 76 Neutrophils % (Manual) Band Neutrophils % 1 (Manual) Lymphocytes % Lymphocytes % 17 (Manual) Monocytes % Monocytes % (Manual) 4 Eosinophils % Eosinophils % 2 (Manual) Basophils % Nucleated Red Blood 0.0 Cells % Immature 0.050 H Granulocytes # Neutrophils # Neutrophils # 10.3 H (Manual) Band Neutrophils # 0.1 Lymphocytes (Manual) 2.2 Lymphocytes # Monocytes # Monocytes # (Manual) 0.5 Eosinophils # Basophils # Nucleated Red Blood Cells # Platelet Estimate DECREASED Polychromasia 1+ Anisocytosis 1+ Microcytosis 1+ Urine Color YELLOW Urine Clarity CLEAR Urine pH 7.0 Urine Specific 1.009 [place] Urine Ketones NEGATIVE Urine Nitrite NEGATIVE Urine Bilirubin NEGATIVE Urine Urobilinogen NEGATIVE Urine Leukocyte NEGATIVE Esterase Urine Hemoglobin NEGATIVE Urine Glucose NEGATIVE Urine Total Protein NEGATIVE Test 03/31/19 00:13 03/31/19 05:11 03/31/19 05:12 03/31/19 10:19 Hemoglobin 12.3 12.4 Hematocrit 35.9 L 35.9 L White Blood Count 20.5 #H Red Blood Count 4.05 L Mean Corpuscular 88.6 Volume Mean Corpuscular 30.6 Hemoglobin Mean Corpuscular 34.5 Hemoglobin Concent Red Cell 14.2 Distribution Width Platelet Count 34 #L Mean Platelet Volume 9.5 Immature 0.700 H Granulocytes % Neutrophils % 85.7 H Lymphocytes % 8.5 L Monocytes % 4.4 Eosinophils % 0.4 Basophils % 0.3 Nucleated Red Blood 0.0 Cells % Immature 0.150 H Granulocytes # Neutrophils # 17.6 H Lymphocytes # 1.7 Monocytes # 0.9 Eosinophils # 0.1 Basophils # 0.1 Nucleated Red Blood 0.0 Cells # Sodium Level 141 Potassium Level 3.9 Chloride Level 106 Carbon Dioxide Level 24 Anion Gap 11 Blood Urea Nitrogen 10 Creatinine 0.59 Est Glomerular > 60 Filtrat Rate mL/min Glucose Level 192 Hemoglobin A1c 5.6 Calcium Level 9.0 Magnesium Level 1.9 Total Bilirubin 0.4 Direct Bilirubin 0.00 Indirect Bilirubin 0.4 Aspartate Amino 30 Transf (AST/SGOT) Alanine 36 Aminotransferase (AL T/SGPT) Alkaline Phosphatase 104 Total Protein 7.6 Albumin 3.8 Globulin 3.80 H Albumin/Globulin 1.00 Ratio Triglycerides Level 364 H Cholesterol Level 183 LDL Cholesterol, 87 Calculated HDL Cholesterol 23 L Cholesterol/HDL 7.9 Ratio Thyroid Stimulating 1.090 Hormone (TSH) Troponin I 0.051 0.031 Medications Medication Current Medications Sodium Chloride 1,000 ml @ 75 mls/hr [id number] IV Last administered on 03/31/19at 07:26; Admin Dose 75 MLS/HR; Start 03/30/19 at 19:04 IV Flush (NS 3 ml) 3 ml PER PROTOCOL IV ; Start 03/30/19 at 19:30 Ondansetron HCl (Zofran Inj) 4 mg Q6H PRN IV NAUSEA/VOMITING; Start 03/30/19 at 19:30 Morphine Sulfate (morphine) 2 mg Q4H PRN IV .PAIN 7-10 Last administered on 03/31/19at 09:41; Admin Dose 2 MG; Start 03/30/19 at 19:30 Ondansetron HCl (Zofran Inj) 4 mg ER BRIDGE PRN IV NAUSEA/VOMITING; Start 03/30/19 at 20:00; Stop 03/31/19 at 19:59 Acetaminophen (Tylenol Tab) 650 mg ER BRIDGE PRN PO .MILD PAIN 1-3 OR TEMP; Start 03/30/19 at 20:00; Stop 03/31/19 at 19:59 Pantoprazole (Protonix Iv) 40 mg BID IV ; Start 03/31/19 at 21:00 Sucralfate (Carafate Susp) 1 gm QID PO ; Start 03/31/19 at 17:00 HILDA REYES NP Mar 31, 2019 14:30
--- NOTE | 2019-03-31 15:12 | CONS ---
Assessment/Plan Assessment/Plan Hospital Course (Demo Recall) Assessment: Chest pain Reported hematemesis and melena Leukocytosis Thrombocytopenia Pre-operative cardiac evaluation Recommendations: Ruled out for myocardial infarction. Recent echocardiogram 03/13/2019 normal. Cardiac catheterization September 2018 at [facility] without significant coronary artery disease, per medical records. No additional cardiac work up at this time. Optimized for endoscopy from cardiac standpoint, if endoscopy planned. No antiplatelet therapy with thrombocytopenia and reported bleeding, and no indication for antiplatelet therapy regardless. Consultation Date/Type/Reason Admit Date/Time Mar 30, 2019 at 19:38 Type of Consult Cardiology Reason for Consultation chest pain Date/Time of Note DATE: 03/31/19 TIME: 15:04 Hx of Present Illness The patient is a 43 year-old female who reports several episodes of nonexert ional chest pain, hematemesis, and melena over the past week. EKG shows sinus rhythm with diffuse ST segment abnormalities. Troponins in the normal range x 3. Recent transthoracic echocardiogram here 03/13/2019 reported normal left ventricular ejection fraction of 55% with normal diastolic function. Per cardiology consultation note on 03/13/[address] Rodolfo Gordon, review of cardiac catheterization reports from September 2018 at [facility] showed no coronary artery disease. 14 point review of systems negative other than per HPI. Past Medical History Medical History: no pertinent history Home Meds Reported Medications Aspirin (Low Dose Aspirin) 81 Mg Tablet., 81 MG PO DAILY, #30 TAB 03/30/19 Quetiapine Fumarate* (Seroquel*) 100 Mg Tablet, 400 MG PO QHS, #30 TAB 03/30/19 Quetiapine Fumarate* (Seroquel*) 100 Mg Tablet, 100 MG PO QAM, #60 TAB 03/30/19 Haloperidol* (Haldol*) 5 Mg Tab, 10 MG PO QAM, TAB 03/30/19 Isosorbide Mononitrate* (Isosorbide Mononitrate*) 30 Mg Tab.er.24h, 30 MG PO DAILY, TAB 03/30/19 Buspirone Hcl* (Buspirone Hcl*) 10 Mg Tab, 5 MG PO BID, TAB 03/30/19 Ranolazine* (Ranexa*) 500 Mg Tab.sr.12h, 500 MG PO Q12, TAB 03/30/19 Diltiazem Hcl (Cardizem) 60 Mg Tablet, 30 MG PO TID, #90 TAB 03/30/19 [place]-3/Dha/Epa/Fish Oil (FISH OIL 1,000 MG SOFTGEL) 1 Each Capsule, 2 EACH PO BID, CAP 03/30/19 Metoprolol Tartrate* (Lopressor*) 25 Mg Tab, 25 MG PO BID, #60 TAB 03/30/19 Fluoxetine Hcl* (Fluoxetine Hcl*) 10 Mg Capsule, 10 MG PO DAILY, CAP 03/30/19 Bupropion Hcl* (Bupropion Hcl SR*) 150 Mg Tablet.er, 150 MG PO BID, TAB.SA 03/30/19 Nitroglycerin* (Nitrostat*) 0.4 Mg Tab.subl, 0.4 MG SL Q5MIN PRN for CHEST PAIN, BOTTLE 03/30/19 Discontinued Reported Medications Prednisone* (Prednisone*) 5 Mg Tab, 5 MG PO DAILY, TAB 03/12/19 Nitroglycerin* (Nitrostat*) 0.4 Mg Tab.subl, 0.4 MG SL Q5MIN PRN for CHEST PAIN, BOTTLE 03/12/19 Discontinued Scripts Pantoprazole* (Pantoprazole*) 40 Mg Tablet.dr, 40 MG PO DAILY for 14 Days, #14 ok for OTC prilosec/ omeprazole. Prov:FRANCESCO BOYER MD 03/14/19 Ibuprofen* (Ibuprofen*) 600 Mg Tablet, 600 MG PO Q6H PRN for MILD PAIN LEVEL 1-3 for 5 Days, #20 TAB Prov:FRANCESCO BOYER MD 03/14/19 Buspirone Hcl* (Buspirone Hcl*) 5 Mg Tab, 5 MG PO BID for 14 Days, #30 TAB Prov:FRANCESCO BOYER MD 03/14/19 Acetaminophen* (Tylenol*) 325 Mg Tablet, 650 MG PO Q6H PRN for .PAIN 1-3 OR TEMP for 1 Day, TAB Prov:FRANCESCO BOYER MD 03/14/19 Medications Current Medications Sodium Chloride 1,000 ml @ 75 mls/hr [id number] IV Last administered on 03/31/19at 07:26; Admin Dose 75 MLS/HR; Start 03/30/19 at 19:04 IV Flush (NS 3 ml) 3 ml PER PROTOCOL IV ; Start 03/30/19 at 19:30 Ondansetron HCl (Zofran Inj) 4 mg Q6H PRN IV NAUSEA/VOMITING; Start 03/30/19 at 19:30 Morphine Sulfate (morphine) 2 mg Q4H PRN IV .PAIN 7-10 Last administered on 03/31/19at 14:40; Admin Dose 2 MG; Start 03/30/19 at 19:30 Ondansetron HCl (Zofran Inj) 4 mg ER BRIDGE PRN IV NAUSEA/VOMITING; Start 03/30/19 at 20:00; Stop 03/31/19 at 19:59 Acetaminophen (Tylenol Tab) 650 mg ER BRIDGE PRN PO .MILD PAIN 1-3 OR TEMP; Start 03/30/19 at 20:00; Stop 03/31/19 at 19:59 Pantoprazole (Protonix Iv) 40 mg BID IV ; Start 03/31/19 at 21:00 Sucralfate (Carafate Susp) 1 gm QID PO ; Start 03/31/19 at 17:00 Allergies: Coded Allergies: No Known Drug Allergy (Unverified Allergy, Unknown, 03/30/19) Past Surgical History Past Surgical Hx: no surgical history, other Family History Significant Family History: no pertinent family hx Social History Smoking Status: Never smoker Exam/Review of Systems Vital Signs Vitals Vital Signs Date Temp Pulse Resp B/P (MAP) Pulse Ox O2 O2 Flow FiO2 Time Delivery Rate 03/31/19 98.1 76 18 114/61 96 12:15 (78) 03/30/19 Room Air 21:00 Intake and Output 03/30/19 03/30/19 03/31/19 1515:00 23:00 07:00 IntakeIntake Total 240 ml BalanceBalance 240 ml Exam Constitutional: alert, well developed Psych: no complaints, nl mood/affect Head: normocephalic, atraumatic Eyes: nl conjunctiva, nl lids ENMT: nl external ears & nose, nl nasal mucosa & septum Neck: supple, non-tender Respiratory: clear to auscultation, normal air movement Cardiovascular: regular rate and rhythm Gastrointestinal: soft, non-tender Musculoskeletal: nl extremities to inspection Extremities: No cyanosis, No clubbing, No edema Neurological: nl mental status, nl speech Labs Result Diagram: 03/31/19 0511 03/31/19 0511 Results 24hrs Laboratory Tests Test 03/30/19 16:30 03/30/19 16:31 03/30/19 19:09 03/30/19 22:31 Prothrombin Time 12.4 Prothrombin Time 1.0 Ratio INR International 0.91 Normalized Ratio Activated 28.2 Partial Thromboplast Time Sodium Level 139 Potassium Level 3.9 Chloride Level 105 Carbon Dioxide Level 25 Anion Gap 9 Blood Urea Nitrogen 10 Creatinine 0.59 Est Glomerular > 60 Filtrat Rate mL/min Glucose Level 123 Calcium Level 9.5 Total Bilirubin 0.5 Direct Bilirubin 0.00 Indirect Bilirubin 0.5 Aspartate Amino 36 Transf (AST/SGOT) Alanine 49 Aminotransferase (AL T/SGPT) Alkaline Phosphatase 110 Creatine Kinase 41 Creatine Kinase 1.0 Index Creatinine Kinase MB 0.39 (Mass) Troponin I 0.034 0.042 B-Type Natriuretic 271 H Peptide Total Protein 8.3 H Albumin 4.1 Globulin 4.20 H Albumin/Globulin 0.97 Ratio Lipase 39 White Blood Count 13.5 #H Red Blood Count 4.00 L Hemoglobin 12.1 Hematocrit 34.9 L Mean Corpuscular 87.3 Volume Mean Corpuscular 30.3 Hemoglobin Mean Corpuscular 34.7 Hemoglobin Concent Red Cell 14.6 H Distribution Width Platelet Count 50 #L Mean Platelet Volume 8.8 Immature 0.400 Granulocytes % Neutrophils % Segmented 76 Neutrophils % (Manual) Band Neutrophils % 1 (Manual) Lymphocytes % Lymphocytes % 17 (Manual) Monocytes % Monocytes % (Manual) 4 Eosinophils % Eosinophils % 2 (Manual) Basophils % Nucleated Red Blood 0.0 Cells % Immature 0.050 H Granulocytes # Neutrophils # Neutrophils # 10.3 H (Manual) Band Neutrophils # 0.1 Lymphocytes (Manual) 2.2 Lymphocytes # Monocytes # Monocytes # (Manual) 0.5 Eosinophils # Basophils # Nucleated Red Blood Cells # Platelet Estimate DECREASED Polychromasia 1+ Anisocytosis 1+ Microcytosis 1+ Urine Color YELLOW Urine Clarity CLEAR Urine pH 7.0 Urine Specific 1.009 [place] Urine Ketones NEGATIVE Urine Nitrite NEGATIVE Urine Bilirubin NEGATIVE Urine Urobilinogen NEGATIVE Urine Leukocyte NEGATIVE Esterase Urine Hemoglobin NEGATIVE Urine Glucose NEGATIVE Urine Total Protein NEGATIVE Test 03/31/19 00:13 03/31/19 05:11 03/31/19 05:12 03/31/19 10:19 Hemoglobin 12.3 12.4 Hematocrit 35.9 L 35.9 L White Blood Count 20.5 #H Red Blood Count 4.05 L Mean Corpuscular 88.6 Volume Mean Corpuscular 30.6 Hemoglobin Mean Corpuscular 34.5 Hemoglobin Concent Red Cell 14.2 Distribution Width Platelet Count 34 #L Mean Platelet Volume 9.5 Immature 0.700 H Granulocytes % Neutrophils % 85.7 H Lymphocytes % 8.5 L Monocytes % 4.4 Eosinophils % 0.4 Basophils % 0.3 Nucleated Red Blood 0.0 Cells % Immature 0.150 H Granulocytes # Neutrophils # 17.6 H Lymphocytes # 1.7 Monocytes # 0.9 Eosinophils # 0.1 Basophils # 0.1 Nucleated Red Blood 0.0 Cells # Sodium Level 141 Potassium Level 3.9 Chloride Level 106 Carbon Dioxide Level 24 Anion Gap 11 Blood Urea Nitrogen 10 Creatinine 0.59 Est Glomerular > 60 Filtrat Rate mL/min Glucose Level 192 Hemoglobin A1c 5.6 Calcium Level 9.0 Magnesium Level 1.9 Total Bilirubin 0.4 Direct Bilirubin 0.00 Indirect Bilirubin 0.4 Aspartate Amino 30 Transf (AST/SGOT) Alanine 36 Aminotransferase (AL T/SGPT) Alkaline Phosphatase 104 Total Protein 7.6 Albumin 3.8 Globulin 3.80 H Albumin/Globulin 1.00 Ratio Triglycerides Level 364 H Cholesterol Level 183 LDL Cholesterol, 87 Calculated HDL Cholesterol 23 L Cholesterol/HDL 7.9 Ratio Thyroid Stimulating 1.090 Hormone (TSH) Troponin I 0.051 0.031 Medications Medications Current Medications Sodium Chloride 1,000 ml @ 75 mls/hr [id number] IV Last administered on 03/31/19at 07:26; Admin Dose 75 MLS/HR; Start 03/30/19 at 19:04 IV Flush (NS 3 ml) 3 ml PER PROTOCOL IV ; Start 03/30/19 at 19:30 Ondansetron HCl (Zofran Inj) 4 mg Q6H PRN IV NAUSEA/VOMITING; Start 03/30/19 at 19:30 Morphine Sulfate (morphine) 2 mg Q4H PRN IV .PAIN 7-10 Last administered on 03/31/19at 14:40; Admin Dose 2 MG; Start 03/30/19 at 19:30 Ondansetron HCl (Zofran Inj) 4 mg ER BRIDGE PRN IV NAUSEA/VOMITING; Start 7/20/19 at 20:00; Stop 03/31/19 at 19:59 Acetaminophen (Tylenol Tab) 650 mg ER BRIDGE PRN PO .MILD PAIN 1-3 OR TEMP; Start 03/30/19 at 20:00; Stop 03/31/19 at 19:59 Pantoprazole (Protonix Iv) 40 mg BID IV ; Start 03/31/19 at 21:00 Sucralfate (Carafate Susp) 1 gm QID PO ; Start 03/31/19 at 17:00 JULIOCESAR JONES MD Mar 31, 2019 15:11
[2019-03-31 16:17] VITALS: BP 114/58; PULSE 84; RESP 18
[2019-03-31] MEDS: SUCRALFATE (100 MG/ML) 10ML CUP PO SCH ×2 (18:01→20:49)
[2019-03-31 20:00] VITALS: BP 109/59; PULSE 88; RESP 18
[2019-03-31] MEDS: PANTOPRAZOLE 40 MG INJ IV SCH (20:49)
[2019-04-01] VITALS (7 sets, daily range): BP systolic 114–132; BP diastolic 63–76; PULSE 80–89; RESP 18
[2019-04-01] MEDS: morphine 2 MG INJ IV PRN ×6 (00:06→22:32)
[2019-04-01] MEDS: PANTOPRAZOLE 40 MG INJ IV SCH (09:03)
[2019-04-01] MEDS: SUCRALFATE (100 MG/ML) 10ML CUP PO SCH ×4 (09:03→20:04)
--- NOTE | 2019-04-01 09:57 | CONS ---
Assessment/Plan Assessment/Plan Hospital Course (Demo Recall) Chest pain: Trops negative and with normal cardiac cath 09/2018 at [facility]. Echo normal 03/2019. Suspect esophageal pathology, plan for EGD Reported hematemesis and melena: EGD as above Leukocytosis Thrombocytopenia: ?etiology. Pre-operative cardiac evaluation -ok to proceed with EGD/GI workup -?hematology eval for thrombocytopenia -no antiplatelets -will follow as needed Consultation Date/Type/Reason Admit Date/Time Mar 30, 2019 at 19:38 Initial Consult Date 03/31/19 Type of Consult Cardiology Date/Time of Note DATE: 04/01/19 TIME: 09:56 24 HR Interval Summary Free Text/Dictation Plts down to 16 today. Plan for EGD tomorrow per GI. Her outpt argon tester is Dr. Villalta Exam/Review of Systems Vital Signs Vitals Vital Signs Date Temp Pulse Resp B/P (MAP) Pulse Ox O2 O2 Flow FiO2 Time Delivery Rate 04/01/19 98.2 80 18 114/63 97 07:19 (80) 03/30/19 Room Air 21:00 Intake and Output 03/31/19 03/31/19 04/01/19 1515:00 23:00 07:00 IntakeIntake Total 240 ml 320 ml BalanceBalance 240 ml 320 ml Exam Constitutional: alert, oriented Psych: no complaints, nl mood/affect Head: normocephalic, atraumatic Neck: supple; No jvd Respiratory: clear to auscultation; No crackles/rales Cardiovascular: regular rate and rhythm; No edema Gastrointestinal: soft, non-tender; No distended Neurological: nl mental status, nl speech Labs Result Diagram: 04/01/19 0505 04/01/19 0504 Results 24hrs Laboratory Tests Test 03/31/19 10:19 04/01/19 05:04 04/01/19 05:05 Troponin I 0.031 Sodium Level 140 Potassium Level 3.5 Chloride Level 105 Carbon Dioxide Level 27 Anion Gap 8 Blood Urea Nitrogen 9 Creatinine 0.53 Est Glomerular Filtrat > 60 Rate mL/min Glucose Level 150 Calcium Level 8.4 Total Bilirubin 0.6 Direct Bilirubin 0.00 Indirect Bilirubin 0.6 Aspartate Amino Transf (AST/SGOT) 23 Alanine 36 Aminotransferase (ALT/SGPT) Alkaline Phosphatase 100 Total Protein 7.1 Albumin 3.4 Globulin 3.70 H Albumin/Globulin Ratio 0.91 White Blood Count 14.0 #H Red Blood Count 4.20 Hemoglobin 12.6 Hematocrit 36.3 L Mean Corpuscular Volume 86.4 Mean Corpuscular Hemoglobin 30.0 Mean Corpuscular 34.7 Hemoglobin Concent Red Cell Distribution Width 14.5 Platelet Count 16 #*L Mean Platelet Volume 12.7 #H Immature Granulocytes % 0.900 H Neutrophils % Segmented Neutrophils % (Manual) 71 Lymphocytes % Lymphocytes % (Manual) 27 Monocytes % Eosinophils % Eosinophils % (Manual) 1 Basophils % Basophils % (Manual) 1 Nucleated Red Blood Cells % 0.0 Immature Granulocytes # 0.120 H Neutrophils # Lymphocytes (Manual) 3.7 H Lymphocytes # Monocytes # Eosinophils # Basophils # Basophils # (Manual) 0.1 H Nucleated Red Blood Cells # Pathologist Review (Hematology) YES Platelet Estimate SIG DECREASED Polychromasia 1+ Anisocytosis 1+ Microcytosis 1+ Macrocytosis 1+ Medications Medications Current Medications Sodium Chloride 1,000 ml @ 75 mls/hr [id number] IV Last administered on 03/31/19 20:54; Admin Dose 75 MLS/HR; Start 03/30/19 at 19:04 IV Flush (NS 3 ml) 3 ml PER PROTOCOL IV ; Start 03/30/19 at 19:30 Ondansetron HCl (Zofran Inj) 4 mg Q6H PRN IV NAUSEA/VOMITING; Start 03/30/19 at 19:30 Morphine Sulfate (morphine) 2 mg Q4H PRN IV .PAIN 7-10 Last administered on 04/01/19 09:03; Admin Dose 2 MG; Start 03/30/19 at 19:30 Pantoprazole (Protonix Iv) 40 mg BID IV Last administered on 04/01/19 09:03; Admin Dose 40 MG; Start 03/31/19 at 21:00 Sucralfate (Carafate Susp) 1 gm QID PO Last administered on 04/01/19 09:03; Admin Dose 1 GM; Start 03/31/19 at 17:00 SVETLANA PORTER Apr 01, 2019 09:57
--- NOTE | 2019-04-01 10:10 | PN ---
Date/Time of Note Date/Time of Note DATE: 04/01/19 TIME: 10:01 Assessment/Plan VTE Prophylaxis Risk score (from Ns)>0 risk: 1 SCD applied (from Ns): No SCD contraindicated: low risk/ambulating Pharmacological prophylaxis: NA/contraindicated Pharm contraindication: thrombocytopenia Lines/Catheters IV [facility] Peripheral IV Assessment/Plan Hospital Course Summary Assessment and Plan: Assessment: Hematemesis/melena -[place] tear versus PUD versus hemorrhagic gastritis versus other Chest Pain Leukocytosis Hypertension History of of [place] in September status post PCI unclear if stent was placed Thrombocytopenia- see Dr. Villalta Hemo/Onc Plan: Cleared by cardio EGD tomorrow Plan to recheck PLT count in am- transfuse according prior to EGD tomorrow PPI twice daily/Carafate 1 g p.o. 4 times daily Patient seen in collaboration with Dr. Josue Subjective: Course reviewed with nursing staff Patient interviewed and examined All labs, imaging and other results reviewed The patient appears comfortable, Hgb remains stable. Discussed plan for EGD tomorrow Patient verbalized understanding Exam PHYSICAL EXAMINATION: GENERAL: Well developed, well nourished, alert & oriented x 3, in no acute distress SKIN: No lesions HEAD: Normocephalic, atraumatic, no tenderness. EYES: Pupils equal reactive to light and accommodation, full extraocular movements, sclera clear, non-icteric, no discharge. EARS/NOSE AND THROAT: Ears normal, nose normal, oropharynx normal, oral membranes well hydrated without lesions. NECK: Supple, no masses CHEST: Inspection within normal limits. CARDIOVASCULAR: Heart: Regular rate and rhythm RESPIRATORY: Lungs clear to auscultation GASTROINTESTINAL AND LIVER: Abdomen: Soft, non tenderness, non-distended, no hernias, no masses, no organomegaly, no ascites, no guarding, no rebound tende rness, normoactive bowel sounds. Rectal: Deferred. EXTREMITIES: No cyanosis, clubbing or edema. Result Diagram: 04/01/19 0505 04/01/19 0504 Results 24hrs Laboratory Tests Test 03/31/19 10:19 04/01/19 05:04 04/01/19 05:05 Troponin I 0.031 Sodium Level 140 Potassium Level 3.5 Chloride Level 105 Carbon Dioxide Level 27 Anion Gap 8 Blood Urea Nitrogen 9 Creatinine 0.53 Est Glomerular Filtrat > 60 Rate mL/min Glucose Level 150 Calcium Level 8.4 Total Bilirubin 0.6 Direct Bilirubin 0.00 Indirect Bilirubin 0.6 Aspartate Amino Transf (AST/SGOT) 23 Alanine 36 Aminotransferase (ALT/SGPT) Alkaline Phosphatase 100 Total Protein 7.1 Albumin 3.4 Globulin 3.70 H Albumin/Globulin Ratio 0.91 White Blood Count 14.0 #H Red Blood Count 4.20 Hemoglobin 12.6 Hematocrit 36.3 L Mean Corpuscular Volume 86.4 Mean Corpuscular Hemoglobin 30.0 Mean Corpuscular 34.7 Hemoglobin Concent Red Cell Distribution Width 14.5 Platelet Count 16 #*L Mean Platelet Volume 12.7 #H Immature Granulocytes % 0.900 H Neutrophils % Segmented Neutrophils % (Manual) 71 Lymphocytes % Lymphocytes % (Manual) 27 Monocytes % Eosinophils % Eosinophils % (Manual) 1 Basophils % Basophils % (Manual) 1 Nucleated Red Blood Cells % 0.0 Immature Granulocytes # 0.120 H Neutrophils # Lymphocytes (Manual) 3.7 H Lymphocytes # Monocytes # Eosinophils # Basophils # Basophils # (Manual) 0.1 H Nucleated Red Blood Cells # Pathologist Review (Hematology) YES Platelet Estimate SIG DECREASED Polychromasia 1+ Anisocytosis 1+ Microcytosis 1+ Macrocytosis 1+ Exam/Review of Systems Exam Vitals Vital Signs Date Temp Pulse Resp B/P (MAP) Pulse Ox O2 O2 Flow FiO2 Time Delivery Rate 04/01/19 98.2 80 18 114/63 97 07:19 (80) 03/30/19 Room Air 21:00 Intake and Output 03/31/19 03/31/19 04/01/19 1515:00 23:00 07:00 IntakeIntake Total 240 ml 320 ml BalanceBalance 240 ml 320 ml Results Results 24hrs Laboratory Tests Test 03/31/19 10:19 04/01/19 05:04 04/01/19 05:05 Troponin I 0.031 Sodium Level 140 Potassium Level 3.5 Chloride Level 105 Carbon Dioxide Level 27 Anion Gap 8 Blood Urea Nitrogen 9 Creatinine 0.53 Est Glomerular Filtrat > 60 Rate mL/min Glucose Level 150 Calcium Level 8.4 Total Bilirubin 0.6 Direct Bilirubin 0.00 Indirect Bilirubin 0.6 Aspartate Amino Transf (AST/SGOT) 23 Alanine 36 Aminotransferase (ALT/SGPT) Alkaline Phosphatase 100 Total Protein 7.1 Albumin 3.4 Globulin 3.70 H Albumin/Globulin Ratio 0.91 White Blood Count 14.0 #H Red Blood Count 4.20 Hemoglobin 12.6 Hematocrit 36.3 L Mean Corpuscular Volume 86.4 Mean Corpuscular Hemoglobin 30.0 Mean Corpuscular 34.7 Hemoglobin Concent Red Cell Distribution Width 14.5 Platelet Count 16 #*L Mean Platelet Volume 12.7 #H Immature Granulocytes % 0.900 H Neutrophils % Segmented Neutrophils % (Manual) 71 Lymphocytes % Lymphocytes % (Manual) 27 Monocytes % Eosinophils % Eosinophils % (Manual) 1 Basophils % Basophils % (Manual) 1 Nucleated Red Blood Cells % 0.0 Immature Granulocytes # 0.120 H Neutrophils # Lymphocytes (Manual) 3.7 H Lymphocytes # Monocytes # Eosinophils # Basophils # Basophils # (Manual) 0.1 H Nucleated Red Blood Cells # Pathologist Review (Hematology) YES Platelet Estimate SIG DECREASED Polychromasia 1+ Anisocytosis 1+ Microcytosis 1+ Macrocytosis 1+ Medications Medication Current Medications Sodium Chloride 1,000 ml @ 75 mls/hr [id number] IV Last administered on 03/31/19at 20:54; Admin Dose 75 MLS/HR; Start 03/30/19 at 19:04 IV Flush (NS 3 ml) 3 ml PER PROTOCOL IV ; Start 03/30/19 at 19:30 Ondansetron HCl (Zofran Inj) 4 mg Q6H PRN IV NAUSEA/VOMITING; Start 03/30/19 at 19:30 Morphine Sulfate (morphine) 2 mg Q4H PRN IV .PAIN 7-10 Last administered on 03/12 09:03; Admin Dose 2 MG; Start 03/30/19 at 19:30 Pantoprazole (Protonix Iv) 40 mg BID IV Last administered on 04/01/19 09:03; Admin Dose 40 MG; Start 03/31/19 at 21:00 Sucralfate (Carafate Susp) 1 gm QID PO Last administered on 04/01/19 09:03; Admin Dose 1 GM; Start 03/31/19 at 17:00 STEVIE BARAHONA Apr 01, 2019 10:10
[2019-04-01] MEDS: SOD CHLORIDE 0.9% 1,000 ML IV SCH (11:04)
--- NOTE | 2019-04-01 11:39 | PN ---
Date/Time of Note Date/Time of Note DATE: 04/01/19 TIME: 11:38 Assessment/Plan VTE Prophylaxis Risk score (from Ns)>0 risk: 1 SCD applied (from Ns): No SCD contraindicated: other Pharmacological prophylaxis: NA/contraindicated Pharm contraindication: bleeding, thrombocytopenia Lines/Catheters IV Catheter Type (from [facility]): Peripheral IV Assessment/Plan Hospital Course SUBJECTIVE: Denies any abdominal pain. Complains of chest discomfort. OBJECTIVE: Physical Exam General: Adequately build 43 year-old female lying in bed in no apparent di stress. HEENT: Normocephalic, atraumatic. Eyes: Anicteric sclerae, conjunctivae clear. ENT: Nasal septum midline, oral mucosa moist. Neck supple, no JVD noticed. Respiratory: Bilaterally clear breath sounds. No use of accessory muscles of respiration. No adventitious breath sounds. Cardiovascular: S1, S2 heard. Regular rate and rhythm. Abdomen: Soft, nontender, and nondistended. Bowel sounds positive in all 4 quadrants. Genitourinary: Deferred. Extremities: No cyanosis, no clubbing, no edema. Peripheral pulses palpable. Neurologic: Cranial nerves II through XII grossly intact. The patient is awake, alert, and oriented. Skin: Normal skin turgor. No skin rashes. Labs & Vitals per chart ASSESSMENT & PLAN 43 -year-old female with chronic thrombocytopenia, who follows up with outpatient hematology who presented to the emergency room with chief complaint of chest pain was admitted to inpatient setting for further treatment and evaluation. 1. Atypical chest pain. Troponins negative. Normal cardiac cath in July 2019 at [facility]. Suspect esophageal pathology. Plan for esophagogastroduodenoscopy. 2. Hematemesis. Continue PPI and Carafate. Transfuse blood products as indicated. Patient being followed by gastroenterology. Plan for esophagogastroduodenoscopy. 3. Thrombocytopenia. Follows up with outpatient hematology. Transfuse platelets as indicated. 4. Leukocytosis. Etiology unclear. Remains afebrile. 5. Hypertriglyceridemia. Dietary advice. 6. DVT prophylaxis. Contraindicated. 7. Fluids, electrolytes, and nutrition. Low-cholesterol diet. 8. Plan Continue PPI and Carafate. Await EGDscopy. The patient was seen in collaboration with Dr. Espinoza. Result Diagram: 04/01/19 0505 04/01/19 0504 Results 24hrs Laboratory Tests Test 7/22/19 05:04 04/01/19 05:05 Sodium Level 140 Potassium Level 3.5 Chloride Level 105 Carbon Dioxide Level 27 Anion Gap 8 Blood Urea Nitrogen 9 Creatinine 0.53 Est Glomerular Filtrat Rate mL/min > 60 Glucose Level 150 Calcium Level 8.4 Total Bilirubin 0.6 Direct Bilirubin 0.00 Indirect Bilirubin 0.6 Aspartate Amino Transf (AST/SGOT) 23 Alanine Aminotransferase (ALT/SGPT) 36 Alkaline Phosphatase 100 Total Protein 7.1 Albumin 3.4 Globulin 3.70 H Albumin/Globulin Ratio 0.91 White Blood Count 14.0 #H Red Blood Count 4.20 Hemoglobin 12.6 Hematocrit 36.3 L Mean Corpuscular Volume 86.4 Mean Corpuscular Hemoglobin 30.0 Mean Corpuscular Hemoglobin Concent 34.7 Red Cell Distribution Width 14.5 Platelet Count 16 #*L Mean Platelet Volume 12.7 #H Immature Granulocytes % 0.900 H Neutrophils % Segmented Neutrophils % (Manual) 71 Lymphocytes % Lymphocytes % (Manual) 27 Monocytes % Eosinophils % Eosinophils % (Manual) 1 Basophils % Basophils % (Manual) 1 Nucleated Red Blood Cells % 0.0 Immature Granulocytes # 0.120 H Neutrophils # Lymphocytes (Manual) 3.7 H Lymphocytes # Monocytes # Eosinophils # Basophils # Basophils # (Manual) 0.1 H Nucleated Red Blood Cells # Pathologist Review (Hematology) YES Platelet Estimate SIG DECREASED Polychromasia 1+ Anisocytosis 1+ Microcytosis 1+ Macrocytosis 1+ Exam/Review of Systems Exam Vitals Vital Signs Date Temp Pulse Resp B/P (MAP) Pulse Ox O2 O2 Flow FiO2 Time Delivery Rate 04/01/19 98.2 80 18 114/63 97 07:19 (80) 03/30/19 Room Air 21:00 Intake and Output 03/31/19 03/31/19 04/01/19 1515:00 23:00 07:00 IntakeIntake Total 240 ml 320 ml BalanceBalance 240 ml 320 ml Results Results 24hrs Laboratory Tests Test 04/01/19 05:04 04/01/19 05:05 Sodium Level 140 Potassium Level 3.5 Chloride Level 105 Carbon Dioxide Level 27 Anion Gap 8 Blood Urea Nitrogen 9 Creatinine 0.53 Est Glomerular Filtrat Rate mL/min > 60 Glucose Level 150 Calcium Level 8.4 Total Bilirubin 0.6 Direct Bilirubin 0.00 Indirect Bilirubin 0.6 Aspartate Amino Transf (AST/SGOT) 23 Alanine Aminotransferase (ALT/SGPT) 36 Alkaline Phosphatase 100 Total Protein 7.1 Albumin 3.4 Globulin 3.70 H Albumin/Globulin Ratio 0.91 White Blood Count 14.0 #H Red Blood Count 4.20 Hemoglobin 12.6 Hematocrit 36.3 L Mean Corpuscular Volume 86.4 Mean Corpuscular Hemoglobin 30.0 Mean Corpuscular Hemoglobin Concent 34.7 Red Cell Distribution Width 14.5 Platelet Count 16 #*L Mean Platelet Volume 12.7 #H Immature Granulocytes % 0.900 H Neutrophils % Segmented Neutrophils % (Manual) 71 Lymphocytes % Lymphocytes % (Manual) 27 Monocytes % Eosinophils % Eosinophils % (Manual) 1 Basophils % Basophils % (Manual) 1 Nucleated Red Blood Cells % 0.0 Immature Granulocytes # 0.120 H Neutrophils # Lymphocytes (Manual) 3.7 H Lymphocytes # Monocytes # Eosinophils # Basophils # Basophils # (Manual) 0.1 H Nucleated Red Blood Cells # Pathologist Review (Hematology) YES Platelet Estimate SIG DECREASED Polychromasia 1+ Anisocytosis 1+ Microcytosis 1+ Macrocytosis 1+ Medications Medication Current Medications Sodium Chloride 1,000 ml @ 75 mls/hr [id number] IV Last administered on 03/31/19 20:54; Admin Dose 75 MLS/HR; Start 03/30/19 at 19:04 IV Flush (NS 3 ml) 3 ml PER PROTOCOL IV ; Start 03/30/19 at 19:30 Ondansetron HCl (Zofran Inj) 4 mg Q6H PRN IV NAUSEA/VOMITING; Start 03/30/19 at 19:30 Morphine Sulfate (morphine) 2 mg Q4H PRN IV .PAIN 7-10 Last administered on 04/01/19 09:03; Admin Dose 2 MG; Start 03/30/19 at 19:30 Pantoprazole (Protonix Iv) 40 mg BID IV Last administered on 04/01/19 09:03; Admin Dose 40 MG; Start 03/31/19 at 21:00 Sucralfate (Carafate Susp) 1 gm QID PO Last administered on 04/01/19 09:03; Admin Dose 1 GM; Start 03/31/19 at 17:00 STEPHANIE BOLDEN NP Apr 01, 2019 11:39
[2019-04-01] MEDS ORDERED: BISACODYL (EC) 5 MG TAB PO PRN (12:00)
[2019-04-01] MEDS: PANTOPRAZOLE (EC) 40 MG TAB PO SCH (17:25)
[2019-04-01] MEDS ORDERED: POLYETHYLENE GLYCOL 17 GM PACKET ONE (19:51)
[2019-04-01] MEDS: POLYETHYLENE GLYCOL 17 GM PACKET PO SCH (20:04)
[2019-04-02] VITALS (11 sets, daily range): BP systolic 99–136; BP diastolic 51–83; PULSE 72–88; RESP 18–25
[2019-04-02] MEDS: PANTOPRAZOLE (EC) 40 MG TAB PO SCH ×2 (06:00→19:14)
[2019-04-02] MEDS: POTASSIUM CHLORIDE (SR) 20 MEQ TAB PO SCH ×2 (06:54→08:28)
[2019-04-02] MEDS: morphine 2 MG INJ IV PRN ×3 (06:54→20:45)
[2019-04-02] MEDS: POLYETHYLENE GLYCOL 17 GM PACKET PO SCH ×2 (08:27→20:39)
[2019-04-02] MEDS: SUCRALFATE (100 MG/ML) 10ML CUP PO SCH ×4 (08:28→20:43)
--- NOTE | 2019-04-02 11:06 | PREAC ---
Date/Time of Note Date/Time of Note DATE: 04/02/19 TIME: 11:05 Anesthesia Eval and Record Evaluation Time Pre-Procedure Interview DATE: 04/02/19 TIME: 11:05 Age 43 Sex female NPO: 8 hrs Preoperative diagnosis Hematemesi / chest pain Planned procedure EGD Past Medical History Past Medical History: Includes Heme: Thrombocytopenia, Other (Leukocytosis) Surgery & Anesthesia Issues No known issue Meds Anticoagulation: No Beta Jean Carlos within 24 hr: No Reason Beta Jean Carlos not given: Pt. not on B-Jean Carlos Reported Medications Aspirin (Low Dose Aspirin) 81 Mg Tablet.dr, 81 MG PO DAILY, #30 TAB 03/30/19 Quetiapine Fumarate* (Seroquel*) 100 Mg Tablet, 400 MG PO QHS, #30 TAB 03/30/19 Quetiapine Fumarate* (Seroquel*) 100 Mg Tablet, 100 MG PO QAM, #60 TAB 03/30/19 Haloperidol* (Haldol*) 5 Mg Tab, 10 MG PO QAM, TAB 03/30/19 Isosorbide Mononitrate* (Isosorbide Mononitrate*) 30 Mg Tab.er.24h, 30 MG PO DAILY, TAB 03/30/19 Buspirone Hcl* (Buspirone Hcl*) 10 Mg Tab, 5 MG PO BID, TAB 03/30/19 Ranolazine* (Ranexa*) 500 Mg Tab.sr.12h, 500 MG PO Q12, TAB 03/30/19 Diltiazem Hcl (Cardizem) 60 Mg Tablet, 30 MG PO TID, #90 TAB 03/30/19 [place]-3/Dha/Epa/Fish Oil (FISH OIL 1,000 MG SOFTGEL) 1 Each Capsule, 2 EACH PO BID, CAP 03/30/19 Metoprolol Tartrate* (Lopressor*) 25 Mg Tab, 25 MG PO BID, #60 TAB 03/30/19 Fluoxetine Hcl* (Fluoxetine Hcl*) 10 Mg Capsule, 10 MG PO DAILY, CAP 03/30/19 Bupropion Hcl* (Bupropion Hcl SR*) 150 Mg Tablet.er, 150 MG PO BID, TAB.SA 03/30/19 Nitroglycerin* (Nitrostat*) 0.4 Mg Tab.subl, 0.4 MG SL Q5MIN PRN for CHEST PAIN, BOTTLE 03/30/19 Discontinued Reported Medications Prednisone* (Prednisone*) 5 Mg Tab, 5 MG PO DAILY, TAB 03/12/19 Nitroglycerin* (Nitrostat*) 0.4 Mg Tab.subl, 0.4 MG SL Q5MIN PRN for CHEST PAIN, BOTTLE 03/12/19 Discontinued Scripts Pantoprazole* (Pantoprazole*) 40 Mg Tablet.dr, 40 MG PO DAILY for 14 Days, #14 ok for OTC prilosec/ omeprazole. Prov:FRANCESCO BOYER MD 03/14/19 Ibuprofen* (Ibuprofen*) 600 Mg Tablet, 600 MG PO Q6H PRN for MILD PAIN LEVEL 1-3 for 5 Days, #20 TAB Prov:FRANCESCO BOYER MD 03/14/19 Buspirone Hcl* (Buspirone Hcl*) 5 Mg Tab, 5 MG PO BID for 14 Days, #30 TAB Prov:FRANCESCO BOYER MD 03/14/19 Acetaminophen* (Tylenol*) 325 Mg Tablet, 650 MG PO Q6H PRN for .PAIN 1-3 OR TEMP for 1 Day, TAB Prov:FRANCESCO BOYER MD 03/14/19 Current Medications IV Flush (NS 3 ml) 3 ml PER PROTOCOL IV ; Start 03/30/19 at 19:30 Ondansetron HCl (Zofran Inj) 4 mg Q6H PRN IV NAUSEA/VOMITING; Start 03/30/19 at 19:30 Morphine Sulfate (morphine) 2 mg Q4H PRN IV .PAIN 7-10 Last administered on 04/02/19at 10:36; Admin Dose 2 MG; Start 03/30/19 at 19:30 Sucralfate (Carafate Susp) 1 gm QID PO Last administered on 04/02/19at 08:28; Admin Dose 1 GM; Start 03/31/19 at 17:00 Polyethylene Glycol (Miralax) 17 gm BID PO Last administered on 04/02/19at 08:27; Admin Dose 17 GM; Start 04/01/19 at 21:00 Bisacodyl (Dulcolax) 10 mg DAILY PRN PO CONSTIPATION Last administered on at 13:52; Admin Dose 10 MG; Start 04/01/19 at 12:00 Pantoprazole (Protonix Tab) 40 mg BID@0600,1800 PO Last administered on 04/01/19at 17:25; Admin Dose 40 MG; Start 04/01/19 at 18:00 Meds reviewed: Yes Allergies Coded Allergies: No Known Drug Allergy (Unverified Allergy, Unknown, 03/30/19) Allergies Reviewed: Yes Labs/Studies Labs Reviewed: Reviewed by anesthesiologist Result Diagram: 04/02/19 0436 04/02/19 0436 Laboratory Tests 04/02/19 04:36 test: Negative Studies: ECG, CXR, 2D Echo (EF 55%) Pre-procedure Exam Last vitals Vital Signs Date Temp Pulse Resp B/P (MAP) Pulse Ox O2 O2 Flow FiO2 Time Delivery Rate 04/02/19 98.4 74 18 116/76 98 08:27 (89) 03/30/19 Room Air 21:00 Airway: Adequate mouth opening Mallampati: Mallampati II Teeth: Normal Lung: Normal Heart: Normal ASA Physical Status ASA physical status: 2 Emergency: None Planned Anesthetic General/MAC: MAC Pre-operative Attestations Prior to commencing anesthesia and surgery, the patient was re-evaluated, there was verification of: *The patient's identity *The results of appropriate recent lab work and preoperative vital signs *The above evaluation not changing prior to induction *Anesthetic plan, risk benefits, alternative and complications discussed with patient/family; questions answered; patient/family understands, accepts and wishes to proceed. VANI MARSHALL Apr 02, 2019 11:06
--- NOTE | 2019-04-02 14:34 | HPN ---
Date/Time of Note Date/Time of Note DATE: 04/02/19 TIME: 14:33 Interval H&P Admission Note Pt. seen H&P reviewed: No system changes DAREK DUMONT MD Apr 02, 2019 14:34
[2019-04-02] MEDS ORDERED: PROPOFOL 20 ML ONE (14:45)
[2019-04-02] MEDS ORDERED: FENTAnyl 50 MCG/ML VIAL ONE (14:46)
[2019-04-02] MEDS ORDERED: ONDANSETRON 4 MG INJ IV PRN (15:00)
--- NOTE | 2019-04-02 15:19 | PN ---
Date/Time of Note Date/Time of Note DATE: 04/02/19 TIME: 15:18 Assessment/Plan VTE Prophylaxis Risk score (from Ns)>0 risk: 1 SCD applied (from Ns): No SCD contraindicated: other Pharmacological prophylaxis: NA/contraindicated Pharm contraindication: bleeding Lines/Catheters IV Catheter Type (from [facility]): Peripheral IV Assessment/Plan Hospital Course SUBJECTIVE: Denies any abdominal pain. Complains of chest discomfort. OBJECTIVE: Physical Exam General: Adequately build 43 year-old female lying in bed in no apparent distress. HEENT: Normocephalic, atraumatic. Eyes: Anicteric sclerae, conjunctivae clear. ENT: Nasal septum midline, oral mucosa moist. Neck supple, no JVD noticed. Respiratory: Bilaterally clear breath sounds. No use of accessory muscles of respiration. No adventitious breath sounds. Cardiovascular: S1, S2 heard. Regular rate and rhythm. Abdomen: Soft, nontender, and nondistended. Bowel sounds positive in all 4 quad rants. Genitourinary: Deferred. Extremities: No cyanosis, no clubbing, no edema. Peripheral pulses palpable. Neurologic: Cranial nerves II through XII grossly intact. The patient is awake, alert, and oriented. Skin: Normal skin turgor. No skin rashes. Labs & Vitals per chart ASSESSMENT & PLAN 43 -year-old female with chronic thrombocytopenia, who follows up with outpatient hematology who presented to the emergency room with chief complaint of chest pain was admitted to inpatient setting for further treatment and evaluation. 1. Atypical chest pain. Troponins negative. Normal cardiac cath in July 2019 at [facility]. 2. Hematemesis. Transfuse blood products as indicated. Patient being followed by gastroenterology. S/P esophagogastroduodenoscopy on 04/02/2019, showed severe hemorrhagic proximal gastritis. Continue PPI and Carafate. 3. Thrombocytopenia. Follows up with outpatient hematology. Transfuse platelets as indicated. 4. Leukocytosis. Etiology unclear. Remains afebrile. 5. Hypertriglyceridemia. Dietary advice. 6. DVT prophylaxis. Contraindicated. 7. Fluids, electrolytes, and nutrition. Low-cholesterol diet. 8. Plan Continue PPI and Carafate. Await clinical improvement before discharging the patient home. The patient was seen in collaboration with Dr. Espinoza. Result Diagram: 04/02/19 0436 04/02/19 0436 Results 24hrs Laboratory Tests Test 04/01/19 18:16 04/01/19 20:02 04/02/19 04:36 Hemoglobin 12.3 11.7 L Hematocrit 35.0 L 33.4 L Urine Test NEGATIVE White Blood Count 11.0 #H Red Blood Count 3.92 L Mean Corpuscular Volume 85.2 Mean Corpuscular Hemoglobin 29.8 Mean Corpuscular Hemoglobin Concent 35.0 Red Cell Distribution Width 14.7 H Platelet Count 12 #*L Mean Platelet Volume Immature Granulocytes % 0.500 H Neutrophils % 59.7 Lymphocytes % 31.0 Monocytes % 5.9 Eosinophils % 2.4 Basophils % 0.5 Nucleated Red Blood Cells % 0.0 Immature Granulocytes # 0.060 H Neutrophils # 6.6 Lymphocytes # 3.4 H Monocytes # 0.7 Eosinophils # 0.3 Basophils # 0.1 Nucleated Red Blood Cells # 0.0 Sodium Level 138 Potassium Level 2.9 *L Chloride Level 104 Carbon Dioxide Level 28 Anion Gap 6 Blood Urea Nitrogen 8 Creatinine 0.53 Est Glomerular Filtrat Rate mL/min > 60 Glucose Level 114 Calcium Level 8.6 Phosphorus Level 3.5 Magnesium Level 2.1 Total Bilirubin 0.4 Direct Bilirubin 0.00 Indirect Bilirubin 0.4 Aspartate Amino Transf (AST/SGOT) 24 Alanine Aminotransferase (ALT/SGPT) 34 Alkaline Phosphatase 119 Total Protein 6.6 Albumin 3.4 Globulin 3.20 Albumin/Globulin Ratio 1.06 Exam/Review of Systems Exam Vitals Vital Signs Date Temp Pulse Resp B/P (MAP) Pulse Ox O2 O2 Flow FiO2 Time Delivery Rate 04/02/19 78 19 106/59 97 Room Air 15:13 (75) 04/02/19 99.4 15:04 Results Results 24hrs Laboratory Tests Test 04/01/19 18:16 04/01/19 20:02 04/02/19 04:36 Hemoglobin 12.3 11.7 L Hematocrit 35.0 L 33.4 L Urine Test NEGATIVE White Blood Count 11.0 #H Red Blood Count 3.92 L Mean Corpuscular Volume 85.2 Mean Corpuscular Hemoglobin 29.8 Mean Corpuscular Hemoglobin Concent 35.0 Red Cell Distribution Width 14.7 H Platelet Count 12 #*L Mean Platelet Volume Immature Granulocytes % 0.500 H Neutrophils % 59.7 Lymphocytes % 31.0 Monocytes % 5.9 Eosinophils % 2.4 Basophils % 0.5 Nucleated Red Blood Cells % 0.0 Immature Granulocytes # 0.060 H Neutrophils # 6.6 Lymphocytes # 3.4 H Monocytes # 0.7 Eosinophils # 0.3 Basophils # 0.1 Nucleated Red Blood Cells # 0.0 Sodium Level 138 Potassium Level 2.9 *L Chloride Level 104 Carbon Dioxide Level 28 Anion Gap 6 Blood Urea Nitrogen 8 Creatinine 0.53 Est Glomerular Filtrat Rate mL/min > 60 Glucose Level 114 Calcium Level 8.6 Phosphorus Level 3.5 Magnesium Level 2.1 Total Bilirubin 0.4 Direct Bilirubin 0.00 Indirect Bilirubin 0.4 Aspartate Amino Transf (AST/SGOT) 24 Alanine Aminotransferase (ALT/SGPT) 34 Alkaline Phosphatase 119 Total Protein 6.6 Albumin 3.4 Globulin 3.20 Albumin/Globulin Ratio 1.06 Medications Medication Current Medications IV Flush (NS 3 ml) 3 ml PER PROTOCOL IV ; Start 03/30/19 at 19:30 Ondansetron HCl (Zofran Inj) 4 mg Q6H PRN IV NAUSEA/VOMITING; Start 03/30/19 at 19:30 Morphine Sulfate (morphine) 2 mg Q4H PRN IV .PAIN 7-10 Last administered on 04/02/19at 10:36; Admin Dose 2 MG; Start 03/30/19 at 19:30 Sucralfate (Carafate Susp) 1 gm QID PO Last administered on 04/02/19at 08:28; Admin Dose 1 GM; Start 03/31/19 at 17:00 Polyethylene Glycol (Miralax) 17 gm BID PO Last administered on 04/02/19at 08:27; Admin Dose 17 GM; Start 04/01/19 at 21:00 Bisacodyl (Dulcolax) 10 mg DAILY PRN PO CONSTIPATION Last administered on 04/01/19at 13:52; Admin Dose 10 MG; Start 04/01/19 at 12:00 Pantoprazole (Protonix Tab) 40 mg BID@0600,1800 PO Last administered on 04/01/19at 17:25; Admin Dose 40 MG; Start 04/01/19 at 18:00 Ondansetron HCl (Zofran Inj) 4 mg PACU ORDER PRN IV NAUSEA/VOMITING; Start 04/02/19 at 15:00; Stop 7/23/19 at 21:00 STEPHANIE BOLDEN NP Apr 02, 2019 15:19
[2019-04-02] MEDS ORDERED: traMADol 50 MG TAB PO PRN (16:00)
--- NOTE | 2019-04-02 16:46 | PAC ---
Date/Time of Note Date/Time of Note DATE: 04/02/19 TIME: 16:46 Post-Anesthesia Notes Post-Anesthesia Note Last documented vital signs Vital Signs Date Temp Pulse Resp B/P (MAP) Pulse Ox O2 O2 Flow FiO2 Time Delivery Rate 04/02/19 98.0 72 18 117/76 94 Room Air 16:08 (90) Activity: WNL Respiratory function: WNL Cardiovascular function: WNL Mental status: Baseline Pain reasonably controlled: Yes Hydration appropriate: Yes Nausea/Vomiting absent: No KAI ESPINOSA MD Apr 02, 2019 16:46
[2019-04-03 02:00] VITALS: BP 101/66; PULSE 71; RESP 17
[2019-04-03] MEDS: morphine 2 MG INJ IV PRN ×6 (02:06→22:38)
[2019-04-03] MEDS: PANTOPRAZOLE (EC) 40 MG TAB PO SCH ×2 (06:25→18:19)
[2019-04-03 08:05] VITALS: BP 104/64; PULSE 74; RESP 16
[2019-04-03] MEDS: SUCRALFATE (100 MG/ML) 10ML CUP PO SCH ×4 (08:19→21:34)
[2019-04-03] MEDS: POLYETHYLENE GLYCOL 17 GM PACKET PO SCH ×2 (08:19→21:34)
--- NOTE | 2019-04-03 13:11 | PN ---
Date/Time of Note Date/Time of Note DATE: 04/03/19 TIME: 13:09 Assessment/Plan VTE Prophylaxis Risk score (from Ns)>0 risk: 1 SCD applied (from Ns): No SCD contraindicated: low risk/ambulating Pharmacological prophylaxis: NA/contraindicated Pharm contraindication: bleeding, thrombocytopenia Lines/Catheters [facility] Peripheral IV Assessment/Plan Hospital Course Summary Assessment and Plan: Assessment: Hematemesis/melena -Zulma[place] tear versus PUD versus hemorrhagic gastritis versus other EGD 04/02/2017 Severe hemorrhagic proximal gastritis Small gastric polyps. Rule out H. pylori infection. Otherwise normal EGD Chest Pain Leukocytosis Hypertension History of of [place] in September status post PCI unclear if stent was placed Thrombocytopenia- see Dr. Villalta Hemo/Onc Plan: Continue PPI and Carafate therapy Diet as tolerated Monitor H/H- transfuse as needed Stool H. pylori- pending Patient seen in collaboration with Dr. Josue Subjective: Course reviewed with nursing staff Patient interviewed and examined All labs, imaging and other results reviewed The patient appears comfortable, I discussed results of EGD, pt verbalized understanding She states small amount of BRBPR x1, and has since resolved- continue close observation. No sig change in Hgb, No change in bowel habits, no unintentional weight loss, no family history of colon cancer. Exam PHYSICAL EXAMINATION: GENERAL: Well developed, well nourished, alert & oriented x 3, in no acute distress SKIN: No lesions HEAD: Normocephalic, atraumatic, no tenderness. EYES: Pupils equal reactive to light, no discharge. EARS/NOSE AND THROAT: Ears normal, nose normal, oropharynx normal, oral membranes well hydrated without lesions. NECK: Supple, no masses CHEST: Inspection within normal limits. CARDIOVASCULAR: Heart: Regular rate and rhythm RESPIRATORY: Lungs clear to auscultation GASTROINTESTINAL AND LIVER: Abdomen: Soft, non tenderness, non-distended, no hernias, no masses, no organomegaly, no ascites, no guarding, no rebound tenderness, normoactive bowel sounds. Rectal: Deferred. EXTREMITIES: No cyanosis, clubbing or edema. Result Diagram: 04/03/19 0526 04/03/19 0526 Results 24hrs Laboratory Tests Test 04/03/19 05:26 04/03/19 06:04 White Blood Count 9.3 Red Blood Count 3.88 L Hemoglobin 11.7 L Hematocrit 33.7 L Mean Corpuscular Volume 86.9 Mean Corpuscular Hemoglobin 30.2 Mean Corpuscular Hemoglobin Concent 34.7 Red Cell Distribution Width 15.1 H Platelet Count 48 #L Mean Platelet Volume 11.6 H Immature Granulocytes % 0.300 Neutrophils % 46.8 Lymphocytes % 45.1 Monocytes % 3.9 Eosinophils % 3.1 Basophils % 0.8 Nucleated Red Blood Cells % 0.0 Immature Granulocytes # 0.030 Neutrophils # 4.4 Lymphocytes # 4.2 H Monocytes # 0.4 Eosinophils # 0.3 Basophils # 0.1 Nucleated Red Blood Cells # 0.0 Sodium Level 140 Potassium Level 3.5 Chloride Level 104 Carbon Dioxide Level 28 Anion Gap 8 Blood Urea Nitrogen 9 Creatinine 0.58 Est Glomerular Filtrat Rate mL/min > 60 Glucose Level 111 Calcium Level 8.9 Phosphorus Level 4.6 Magnesium Level 2.0 Total Bilirubin 0.3 Direct Bilirubin 0.00 Indirect Bilirubin 0.3 Aspartate Amino Transf (AST/SGOT) 24 Alanine Aminotransferase (ALT/SGPT) 33 Alkaline Phosphatase 118 Total Protein 7.0 Albumin 3.7 Globulin 3.30 H Albumin/Globulin Ratio 1.12 Lab Scanned Report BLOOD TRANSFUSION Exam/Review of Systems Exam Vitals Vital Signs Date Temp Pulse Resp B/P (MAP) Pulse Ox O2 O2 Flow FiO2 Time Delivery Rate 04/03/19 98.0 74 16 104/64 97 08:05 (77) 04/02/19 Room Air 16:08 Intake and Output 04/02/19 04/02/19 04/03/19 1515:00 23:00 07:00 IntakeIntake Total 616 ml 360 ml BalanceBalance 616 ml 360 ml Results Results 24hrs Laboratory Tests Test 04/03/19 05:26 04/03/19 06:04 White Blood Count 9.3 Red Blood Count 3.88 L Hemoglobin 11.7 L Hematocrit 33.7 L Mean Corpuscular Volume 86.9 Mean Corpuscular Hemoglobin 30.2 Mean Corpuscular Hemoglobin Concent 34.7 Red Cell Distribution Width 15.1 H Platelet Count 48 #L Mean Platelet Volume 11.6 H Immature Granulocytes % 0.300 Neutrophils % 46.8 Lymphocytes % 45.1 Monocytes % 3.9 Eosinophils % 3.1 Basophils % 0.8 Nucleated Red Blood Cells % 0.0 Immature Granulocytes # 0.030 Neutrophils # 4.4 Lymphocytes # 4.2 H Monocytes # 0.4 Eosinophils # 0.3 Basophils # 0.1 Nucleated Red Blood Cells # 0.0 Sodium Level 140 Potassium Level 3.5 Chloride Level 104 Carbon Dioxide Level 28 Anion Gap 8 Blood Urea Nitrogen 9 Creatinine 0.58 Est Glomerular Filtrat Rate mL/min > 60 Glucose Level 111 Calcium Level 8.9 Phosphorus Level 4.6 Magnesium Level 2.0 Total Bilirubin 0.3 Direct Bilirubin 0.00 Indirect Bilirubin 0.3 Aspartate Amino Transf (AST/SGOT) 24 Alanine Aminotransferase (ALT/SGPT) 33 Alkaline Phosphatase 118 Total Protein 7.0 Albumin 3.7 Globulin 3.30 H Albumin/Globulin Ratio 1.12 Lab Scanned Report BLOOD TRANSFUSION Medications Medication Current Medications IV Flush (NS 3 ml) 3 ml PER PROTOCOL IV ; Start 03/30/19 at 19:30 Ondansetron HCl (Zofran Inj) 4 mg Q6H PRN IV NAUSEA/VOMITING; Start 03/30/19 at 19:30 Morphine Sulfate (morphine) 2 mg Q4H PRN IV .PAIN 7-10 Last administered on 04/03/19 10:15; Admin Dose 2 MG; Start 03/30/19 at 19:30 Sucralfate (Carafate Susp) 1 gm QID PO Last administered on 04/03/19 08:19; Admin Dose 1 GM; Start 03/31/19 at 17:00 Polyethylene Glycol (Miralax) 17 gm BID PO Last administered on 04/03/19 08:19; Admin Dose 17 GM; Start 04/01/19 at 21:00 Bisacodyl (Dulcolax) 10 mg DAILY PRN PO CONSTIPATION Last administered on 04/01/19 13:52; Admin Dose 10 MG; Start 04/01/19 at 12:00 Pantoprazole (Protonix Tab) 40 mg BID@0600,1800 PO Last administered on 04/03/19 06:25; Admin Dose 40 MG; Start 04/01/19 at 18:00 Tramadol HCl (Ultram) 50 mg Q6H PRN PO MODERATE PAIN LEVEL 4-6 Last administered on 04/02/19 16:37; Admin Dose 50 MG; Start 04/02/19 at 16:00 STEVIE BARAHONA Apr 03, 2019 13:10
[2019-04-03 14:00] VITALS: BP 117/71; PULSE 69; RESP 16
--- NOTE | 2019-04-03 15:45 | PN ---
Date/Time of Note Date/Time of Note DATE: 04/03/19 TIME: 15:44 Assessment/Plan VTE Prophylaxis Risk score (from Nsg)>0 risk: 1 SCD applied (from Ns): No SCD contraindicated: low risk/ambulating Pharmacological prophylaxis: NA/contraindicated Pharm contraindication: low risk/ambulating Lines/Catheters IV C[facility]ter Type (from [facility]): Peripheral IV Assessment/Plan Hospital Course SUBJECTIVE: Complaints of abdominal pain. Complains of chest discomfort. Had 1 episode of BRBPR last night. OBJECTIVE: Physical Exam General: Adequately build 43 year-old female lying in bed in no apparent distress. HEENT: Normocephalic, atraumatic. Eyes: Anicteric sclerae, conjunctivae clear. ENT: Nasal septum midline, oral mucosa moist. Neck supple, no JVD noticed. Respiratory: Bilaterally clear breath sounds. No use of accessory muscles of respiration. No adventitious breath sounds. Cardiovascular: S1, S2 heard. Regular rate and rhythm. Abdomen: Soft, nontender, and nondistended. Bowel sounds positive in all 4 quadrants. Genitourinary: Deferred. Extremities: No cyanosis, no clubbing, no edema. Peripheral pulses palpable. Neurologic: Cranial nerves II through XII grossly intact. The patient is awake, alert, and oriented. Skin: Normal skin turgor. No skin rashes. Labs & Vitals per chart ASSESSMENT & PLAN 43 -year-old female with chronic thrombocytopenia, who follows up with outpatient hematology who presented to the emergency room with chief complaint of chest pain was admitted to inpatient setting for further treatment and evaluation. 1. Atypical chest pain. Troponins negative. Normal cardiac cath in July 2019 at [facility]. 2. Hematemesis. Transfuse blood products as indicated. Patient being followed by gastroenterology. S/P esophagogastroduodenoscopy on 04/02/2019, showed severe hemorrhagic proximal gastritis. Continue PPI and Carafate. 3. Thrombocytopenia. Follows up with outpatient hematology. Transfuse platelets as indicated. 4. Leukocytosis. Etiology unclear. Remains afebrile. 5. Hypertriglyceridemia. Dietary advice. 6. DVT prophylaxis. Contraindicated. 7. Fluids, electrolytes, and nutrition. Soft diet. 8. Plan Continue PPI and Carafate. Await clinical improvement before discharging the patient home. The patient was seen in collaboration with Dr. Espinoza. Result Diagram: 04/03/1926 04/03/19525 Results 24hrs Laboratory Tests Test 04/03/19 05:26 04/03/19 06:04 White Blood Count 9.3 Red Blood Count 3.88 L Hemoglobin 11.7 L Hematocrit 33.7 L Mean Corpuscular Volume 86.9 Mean Corpuscular Hemoglobin 30.2 Mean Corpuscular Hemoglobin Concent 34.7 Red Cell Distribution Width 15.1 H Platelet Count 48 #L Mean Platelet Volume 11.6 H Immature Granulocytes % 0.300 Neutrophils % 46.8 Lymphocytes % 45.1 Monocytes % 3.9 Eosinophils % 3.1 Basophils % 0.8 Nucleated Red Blood Cells % 0.0 Immature Granulocytes # 0.030 Neutrophils # 4.4 Lymphocytes # 4.2 H Monocytes # 0.4 Eosinophils # 0.3 Basophils # 0.1 Nucleated Red Blood Cells # 0.0 Sodium Level 140 Potassium Level 3.5 Chloride Level 104 Carbon Dioxide Level 28 Anion Gap 8 Blood Urea Nitrogen 9 Creatinine 0.58 Est Glomerular Filtrat Rate mL/min > 60 Glucose Level 111 Calcium Level 8.9 Phosphorus Level 4.6 Magnesium Level 2.0 Total Bilirubin 0.3 Direct Bilirubin 0.00 Indirect Bilirubin 0.3 Aspartate Amino Transf (AST/SGOT) 24 Alanine Aminotransferase (ALT/SGPT) 33 Alkaline Phosphatase 118 Total Protein 7.0 Albumin 3.7 Globulin 3.30 H Albumin/Globulin Ratio 1.12 Lab Scanned Report BLOOD TRANSFUSION Exam/Review of Systems Exam Vitals Vital Signs Date Temp Pulse Resp B/P (MAP) Pulse Ox O2 O2 Flow FiO2 Time Delivery Rate 04/03/19 98.1 69 16 117/71 95 14:00 (86) 04/02/19 Room Air 16:08 Intake and Output 04/02/19 04/02/19 04/03/19 1515:00 23:00 07:00 IntakeIntake Total 616 ml 360 ml BalanceBalance 616 ml 360 ml Results Results 24hrs Laboratory Tests Test 04/03/19 05:26 04/03/19 06:04 White Blood Count 9.3 Red Blood Count 3.88 L Hemoglobin 11.7 L Hematocrit 33.7 L Mean Corpuscular Volume 86.9 Mean Corpuscular Hemoglobin 30.2 Mean Corpuscular Hemoglobin Concent 34.7 Red Cell Distribution Width 15.1 H Platelet Count 48 #L Mean Platelet Volume 11.6 H Immature Granulocytes % 0.300 Neutrophils % 46.8 Lymphocytes % 45.1 Monocytes % 3.9 Eosinophils % 3.1 Basophils % 0.8 Nucleated Red Blood Cells % 0.0 Immature Granulocytes # 0.030 Neutrophils # 4.4 Lymphocytes # 4.2 H Monocytes # 0.4 Eosinophils # 0.3 Basophils # 0.1 Nucleated Red Blood Cells # 0.0 Sodium Level 140 Potassium Level 3.5 Chloride Level 104 Carbon Dioxide Level 28 Anion Gap 8 Blood Urea Nitrogen 9 Creatinine 0.58 Est Glomerular Filtrat Rate mL/min > 60 Glucose Level 111 Calcium Level 8.9 Phosphorus Level 4.6 Magnesium Level 2.0 Total Bilirubin 0.3 Direct Bilirubin 0.00 Indirect Bilirubin 0.3 Aspartate Amino Transf (AST/SGOT) 24 Alanine Aminotransferase (ALT/SGPT) 33 Alkaline Phosphatase 118 Total Protein 7.0 Albumin 3.7 Globulin 3.30 H Albumin/Globulin Ratio 1.12 Lab Scanned Report BLOOD TRANSFUSION Medications Medication Current Medications IV Flush (NS 3 ml) 3 ml PER PROTOCOL IV ; Start 03/30/19 at 19:30 Ondansetron HCl (Zofran Inj) 4 mg Q6H PRN IV NAUSEA/VOMITING; Start 03/30/19 at 19:30 Morphine Sulfate (morphine) 2 mg Q4H PRN IV .PAIN 7-10 Last administered on 04/03/19at 14:26; Admin Dose 2 MG; Start 03/30/19 at 19:30 Sucralfate (Carafate Susp) 1 gm QID PO Last administered on 04/03/19at 13:56; Admin Dose 1 GM; Start 03/31/19 at 17:00 Polyethylene Glycol (Miralax) 17 gm BID PO Last administered on 04/03/19at 08:19; Admin Dose 17 GM; Start 04/01/19 at 21:00 Bisacodyl (Dulcolax) 10 mg DAILY PRN PO CONSTIPATION Last administered on 04/01/19 13:52; Admin Dose 10 MG; Start 04/01/19 at 12:00 Pantoprazole (Protonix Tab) 40 mg BID@0600,1800 PO Last administered on 03/12 06:25; Admin Dose 40 MG; Start 04/01/19 at 18:00 Tramadol HCl (Ultram) 50 mg Q6H PRN PO MODERATE PAIN LEVEL 4-6 Last administered on 04/02/19at 16:37; Admin Dose 50 MG; Start 04/02/19 at 16:00 STEPHANIE BOLDEN NP Apr 03, 2019 15:45
[2019-04-03 20:37] VITALS: BP 122/58; PULSE 69; RESP 18
[2019-04-04 02:59] VITALS: BP 102/59; PULSE 73; RESP 18
[2019-04-04] MEDS: morphine 2 MG INJ IV PRN ×2 (03:16→07:36)
[2019-04-04] MEDS: PANTOPRAZOLE (EC) 40 MG TAB PO SCH (06:15)
[2019-04-04 08:12] VITALS: BP 127/80; PULSE 73; RESP 18
[2019-04-04] MEDS: POLYETHYLENE GLYCOL 17 GM PACKET PO SCH (09:44)
[2019-04-04] MEDS: SUCRALFATE (100 MG/ML) 10ML CUP PO SCH ×2 (09:44→13:17)
--- NOTE | 2019-04-04 10:45 | PN ---
Date/Time of Note Date/Time of Note DATE: 04/04/19 TIME: 10:32 Assessment/Plan VTE Prophylaxis Risk score (from Ns)>0 risk: 1 SCD applied (from Ns): No SCD contraindicated: low risk/ambulating Pharmacological prophylaxis: NA/contraindicated Pharm contraindication: thrombocytopenia Lines/Catheters [facility] IV Assessment/Plan Hospital Course Summary Assessment and Plan: Assessment: Hematemesis/melena -Zulma[place] tear versus PUD versus hemorrhagic gastritis versus other EGD 04/02/2017 Severe hemorrhagic proximal gastritis Small gastric polyps. Rule out H. pylori infection. Otherwise normal EGD Chest Pain Leukocytosis- resolved Hypertension History of of CT in September status post PCI unclear if stent was placed Thrombocytopenia- see Dr. Villalta Hemo/Onc Plan: Continue PPI and Carafate therapy 4 weeks Pt can f/u with GI after d/c to further assess for H. pylori vis UBT vs stool studies Diet as tolerated Monitor H/H- transfuse as needed Stool H. pylori- pending D/c planning per hospitalist - patient appears stable for d/c from GI point of view Patient seen in collaboration with Dr. Josue Subjective: Course reviewed with nursing staff Patient interviewed and examined All labs, imaging and other results reviewed HGg and Plt counts have improved, no overt signs of Gi bleed No c/o n/v or abd pain Exam PHYSICAL EXAMINATION: GENERAL: Well developed, well nourished, alert & oriented x 3, in no acute distress SKIN: No lesions HEAD: Normocephalic, atraumatic, no tenderness. EYES: Pupils equal reactive to light, no discharge. EARS/NOSE AND THROAT: Ears normal, nose normal, oropharynx normal, oral membranes well hydrated without lesions. NECK: Supple, no masses CHEST: Inspection within normal limits. CARDIOVASCULAR: Heart: Regular rate and rhythm RESPIRATORY: Lungs clear to auscultation GASTROINTESTINAL AND LIVER: Abdomen: Soft, non tenderness, non-distended, no hernias, no masses, no organomegaly, no ascites, no guarding, no rebound tenderness, normoactive bowel sounds. Rectal: Deferred. EXTREMITIES: No cyanosis, clubbing or edema. Result Diagram: 04/04/19 0619 04/04/19 0619 Results 24hrs Laboratory Tests Test 04/04/19 06:19 White Blood Count 9.6 Red Blood Count 4.01 L Hemoglobin 12.0 Hematocrit 35.4 L Mean Corpuscular Volume 88.3 Mean Corpuscular Hemoglobin 29.9 Mean Corpuscular Hemoglobin Concent 33.9 Red Cell Distribution Width 14.5 Platelet Count 80 #L Mean Platelet Volume 12.1 H Immature Granulocytes % 0.200 Neutrophils % 51.8 Lymphocytes % 38.5 Monocytes % 5.2 Eosinophils % 3.6 Basophils % 0.7 Nucleated Red Blood Cells % 0.0 Immature Granulocytes # 0.020 Neutrophils # 5.0 Lymphocytes # 3.7 H Monocytes # 0.5 Eosinophils # 0.4 Basophils # 0.1 Nucleated Red Blood Cells # 0.0 Sodium Level 139 Potassium Level 3.8 Chloride Level 102 Carbon Dioxide Level 28 Anion Gap 9 Blood Urea Nitrogen 11 Creatinine 0.64 Est Glomerular Filtrat Rate mL/min > 60 Glucose Level 119 Calcium Level 9.5 Phosphorus Level 4.2 Magnesium Level 2.0 Total Bilirubin 0.3 Direct Bilirubin 0.00 Indirect Bilirubin 0.3 Aspartate Amino Transf (AST/SGOT) 36 Alanine Aminotransferase (ALT/SGPT) 46 Alkaline Phosphatase 129 H Total Protein 7.8 Albumin 3.9 Globulin 3.90 H Albumin/Globulin Ratio 1.00 Exam/Review of Systems Exam Vitals Vital Signs Date Temp Pulse Resp B/P (MAP) Pulse Ox O2 O2 Flow FiO2 Time Delivery Rate 04/04/19 98.5 73 18 127/80 96 Room Air 08:12 (96) Intake and Output 04/03/19 04/03/19 04/04/19 1414:59 22:59 06:59 IntakeIntake Total 720 ml 240 ml BalanceBalance 720 ml 240 ml Results Results 24hrs Laboratory Tests Test 04/04/19 06:19 White Blood Count 9.6 Red Blood Count 4.01 L Hemoglobin 12.0 Hematocrit 35.4 L Mean Corpuscular Volume 88.3 Mean Corpuscular Hemoglobin 29.9 Mean Corpuscular Hemoglobin Concent 33.9 Red Cell Distribution Width 14.5 Platelet Count 80 #L Mean Platelet Volume 12.1 H Immature Granulocytes % 0.200 Neutrophils % 51.8 Lymphocytes % 38.5 Monocytes % 5.2 Eosinophils % 3.6 Basophils % 0.7 Nucleated Red Blood Cells % 0.0 Immature Granulocytes # 0.020 Neutrophils # 5.0 Lymphocytes # 3.7 H Monocytes # 0.5 Eosinophils # 0.4 Basophils # 0.1 Nucleated Red Blood Cells # 0.0 Sodium Level 139 Potassium Level 3.8 Chloride Level 102 Carbon Dioxide Level 28 Anion Gap 9 Blood Urea Nitrogen 11 Creatinine 0.64 Est Glomerular Filtrat Rate mL/min > 60 Glucose Level 119 Calcium Level 9.5 Phosphorus Level 4.2 Magnesium Level 2.0 Total Bilirubin 0.3 Direct Bilirubin 0.00 Indirect Bilirubin 0.3 Aspartate Amino Transf (AST/SGOT) 36 Alanine Aminotransferase (ALT/SGPT) 46 Alkaline Phosphatase 129 H Total Protein 7.8 Albumin 3.9 Globulin 3.90 H Albumin/Globulin Ratio 1.00 Medications Medication Current Medications IV Flush (NS 3 ml) 3 ml PER PROTOCOL IV ; Start 03/30/19 at 19:30 Ondansetron HCl (Zofran Inj) 4 mg Q6H PRN IV NAUSEA/VOMITING; Start 03/30/19 at 19:30 Sucralfate (Carafate Susp) 1 gm QID PO Last administered on 04/04/19 09:44; Admin Dose 1 GM; Start 03/31/19 at 17:00 Polyethylene Glycol (Miralax) 17 gm BID PO Last administered on 04/04/19 09:44; Admin Dose 17 GM; Start 04/01/19 at 21:00 Bisacodyl (Dulcolax) 10 mg DAILY PRN PO CONSTIPATION Last administered on 04/01/19 13:52; Admin Dose 10 MG; Start 04/01/19 at 12:00 Pantoprazole (Protonix Tab) 40 mg BID@0600,1800 PO Last administered on 04/04/19 06:15; Admin Dose 40 MG; Start 04/01/19 at 18:00 STEVIE BARAHONA Apr 04, 2019 10:42
[2019-04-04] MEDS ORDERED: PANT40TA4 PO (12:37)
[2019-04-04] MEDS ORDERED: CARAS PO (12:37)
--- NOTE | 2019-04-04 12:41 | PDOCDIS ---
Discharge Instructions CONDITION [id number] Patient Condition: [id number] Stable HOME CARE INSTRUCTIONS: [id number] Diet Instructions: [id number] Low Fat /Cholesterol FOLLOW UP/APPOINTMENTS Follow-up Plan Haresh Weiss MD Specialty: Internal Medicine Office Address: [address] [facility] [address] [place] [id number] Office OTHER ORDERS: Other Orders: 1. Take medications as per prescription. 2. Follow a low-cholesterol diet. 3. Resume activities as tolerated 4. Follow-up with your primary care physician in 1 week. Have your primary care physician arrange for outpatient gastroenterology follow-up. 5. Follow-up with your supply chain development manager as scheduled. 6. Please go to the nearest emergency room if you have any significant chest pain, blood in vomit or stool, or any other unusual signs/symptoms. 1. [place] los medicamentos segn la receta. 2. Siga naldo dieta baja en colesterol. 3. Reanude las actividades segn lo tolerado 4. Rema un seguimiento con jc mdico de atencin primaria en 1 semana. Pdale a jc mdico de atencin primaria que se encargue del seguimiento de la gastroenterologa ambulatoria. 5. Rema un seguimiento con jc hematlogo segn lo programado. 6. Dirjase a la gaston de emergencias ms cercana si tiene algn dolor torcico significativo, twin en el vmito o las heces, o cualquier otro signo / sntoma inusual. STEPHANIE BOLDEN NP Apr 04, 2019 12:41
[2019-04-04 14:00] VITALS: BP 109/60; PULSE 84; RESP 18
--- NOTE | 2019-04-04 15:02 | DS ---
Date/Time of Note Date/Time of Note DATE: 04/04/19 TIME: 14:57 Discharge Summary Admission/Discharge Info Admit Date/Time Apr 01, 2019 at 11:30 Discharge Date/Time Discharge Diagnosis 1. Atypical chest pain. 2. Hematemesis. 3. Severe hemorrhagic proximal gastritis. 4. Thrombocytopenia. 5. Hypertriglyceridemia. Patient Condition: Stable Consults 1. Adan Macias MD, Cardiology. 2. Jonathan Anna MD, Cardiology. 3. Jerry Josue MD, Gastroenterology. Procedures Esophagogastroduodenoscopy on 04/02/2019 Impression: Severe hemorrhagic proximal gastritis. Hx of Present Illness This is a 43 -year-old female with chronic thrombocytopenia, who follows up with outpatient hematology who presented to the emergency room with chief complaint of chest pain was admitted to inpatient setting for further treatment and evaluation. Hospital Course Cardiology consult was obtained. Select troponins were negative. Patient had a normal coronary angiogram in July 2019 at [facility]. The patient has a history of chronic thrombocytopenia pain and it was suspected that the patient's chest pain was probably gastrointestinal in origin. Therefore, a gastroenterology consult was obtained. Meanwhile, the patient had a few episodes of hematemesis and hematochezia. The patient received 2 units of plateletpheresis transfusion during this admission. The patient underwent an esophagogastroduodenoscopy on 04/02/2019 that showed severe hemorrhagic proximal gastritis. Therefore, gastroenterology recommended to continue the patient on PPI and Carafate. No biopsies were obtained because of underlying thrombocytopenia. Nevertheless, stool for H. pylori was ordered. The results of this is pending at this time. The patient continued to be asking for pain medications [id number]. The patient did not have any clinical evidence of underlying pain. Therefore, it was suspected that if the patient was opioid seeking. The patient's pain medications were discontinued and the patient was asking for pain medications. The patient was reinforced on the importance of avoiding the regular use of opioids. As mentioned earlier, the patient has underlying chronic thrombocytopenia and the patient follows up with outpatient hematology. The patient was noticed to have a hypertriglyceridemia incidentally. The patient was advised on a low cholesterol diet. Registered dietitian consult was also obtained to advise the patient on a low-cholesterol diet. The patient had a stable hospital course. The patient was cleared by consultants to be discharged home. Discharge Instructions 1. Take medications as per prescription. 2. Follow a low-cholesterol diet. 3. Resume activities as tolerated 4. Follow-up with your primary care physician in 1 week. Have your primary care physician arrange for outpatient gastroenterology follow-up. 5. Follow-up with your coil strapper as scheduled. 6. Please go to the nearest emergency room if you have any significant chest pain, blood in vomit or stool, or any other unusual signs/symptoms. The patient verbalized understanding of her discharge instructions. At this time I would like to thank all the consultants for seeing the patient, doing the necessary procedures, and providing clinical recommendations. The patient was seen in collaboration with Dr. Espinoza. Home Meds Active Scripts Sucralfate* (Carafate*) 1 Gm/10 Ml Susp, 1 GM PO QID, #120 UNIT Prov:STEPHANIE BOLDEN NP 04/04/19 Pantoprazole* (Pantoprazole*) 40 Mg Tablet., 40 MG PO BID@0600,1800, #60 TAB Prov:STEPHANIE BOLDNE HOSE SUSPENDER CUTTER 04/04/19 Reported Medications [place]-3/Dha/Epa/Fish Oil (FISH OIL 1,000 MG SOFTGEL) 1 Each Capsule, 2 EACH PO BID, CAP 03/30/19 Discontinued Reported Medications Aspirin (Low Dose Aspirin) 81 Mg Tablet., 81 MG PO DAILY, #30 TAB 03/30/19 Quetiapine Fumarate* (Seroquel*) 100 Mg Tablet, 400 MG PO QHS, #30 TAB 03/30/19 Quetiapine Fumarate* (Seroquel*) 100 Mg Tablet, 100 MG PO QAM, #60 TAB 03/30/19 Haloperidol* (Haldol*) 5 Mg Tab, 10 MG PO QAM, TAB 03/30/19 Isosorbide Mononitrate* (Isosorbide Mononitrate*) 30 Mg Tab.er.24h, 30 MG PO DAILY, TAB 03/30/19 Buspirone Hcl* (Buspirone Hcl*) 10 Mg Tab, 5 MG PO BID, TAB 03/30/19 Ranolazine* (Ranexa*) 500 Mg Tab.sr.12h, 500 MG PO Q12, TAB 03/30/19 Diltiazem Hcl (Cardizem) 60 Mg Tablet, 30 MG PO TID, #90 TAB 03/30/19 Metoprolol Tartrate* (Lopressor*) 25 Mg Tab, 25 MG PO BID, #60 TAB 03/30/19 Fluoxetine Hcl* (Fluoxetine Hcl*) 10 Mg Capsule, 10 MG PO DAILY, CAP 03/30/19 Bupropion Hcl* (Bupropion Hcl SR*) 150 Mg Tablet.er, 150 MG PO BID, TAB.SA 03/30/19 Nitroglycerin* (Nitrostat*) 0.4 Mg Tab.subl, 0.4 MG SL Q5MIN PRN for CHEST PAIN, BOTTLE 03/30/19 Prednisone* (Prednisone*) 5 Mg Tab, 5 MG PO DAILY, TAB 03/12/19 Nitroglycerin* (Nitrostat*) 0.4 Mg Tab.subl, 0.4 MG SL Q5MIN PRN for CHEST PAIN, BOTTLE 03/12/19 Discontinued Scripts Pantoprazole* (Pantoprazole*) 40 Mg Tablet.dr, 40 MG PO DAILY for 14 Days, #14 ok for OTC prilosec/ omeprazole. Prov:FRANCESCO BOYER MD 03/14/19 Ibuprofen* (Ibuprofen*) 600 Mg Tablet, 600 MG PO Q6H PRN for MILD PAIN LEVEL 1-3 for 5 Days, #20 TAB Prov:FRANCESCO BOYER MD 03/14/19 Buspirone Hcl* (Buspirone Hcl*) 5 Mg Tab, 5 MG PO BID for 14 Days, #30 TAB Prov:FRANCESCO BOYER MD 03/14/19 Acetaminophen* (Tylenol*) 325 Mg Tablet, 650 MG PO Q6H PRN for .PAIN 1-3 OR TEMP for 1 Day, TAB Prov:FRANCESCO BOYER MD 03/14/19 Follow-up Plan Haresh Weiss MD Specialty: Internal Medicine Office Address: [address] [place], [place] [phone] Office Primary Care Provider Not On Staff Doctor Time spent on discharge: > 30 minutes Pending Labs Laboratory Tests Test 04/04/19 06:19 White Blood Count 9.6 10^3/ul (4.8-10.8) Red Blood Count 4.01 10^6/ul (4.20-5.40) Hemoglobin 12.0 g/dl (12.0-16.0) Hematocrit 35.4 % (37.0-47.0) Mean Corpuscular Volume 88.3 fl (82.0-101.0) Mean Corpuscular Hemoglobin 29.9 pg (29.0-33.0) Mean Corpuscular Hemoglobin Concent 33.9 g/dl (32.0-37.0) Red Cell Distribution Width 14.5 % (11.5-14.5) Platelet Count 80 10^3/UL (140-415) Mean Platelet Volume 12.1 fl (7.4-10.4) Immature Granulocytes % 0.200 % (0.001-0.429) Neutrophils % 51.8 % (39.0-77.0) Lymphocytes % 38.5 % (15.0-51.0) Monocytes % 5.2 % (0.0-11.0) Eosinophils % 3.6 % (0.0-7.0) Basophils % 0.7 % (0.0-2.0) Nucleated Red Blood Cells % 0.0 /100WBC (0.0-0.0) Immature Granulocytes # 0.020 10^3/ul (0.0-0.031) Neutrophils # 5.0 10^3/ul (1.6-7.5) Lymphocytes # 3.7 10^3/ul (0.8-2.9) Monocytes # 0.5 10^3/ul (0.3-0.9) Eosinophils # 0.4 10^3/ul (0.0-0.5) Basophils # 0.1 10^3/ul (0.0-0.1) Nucleated Red Blood Cells # 0.0 10^3/ul (0.0-0.0) Sodium Level 139 mmol/L (135-144) Potassium Level 3.8 mmol/L (3.5-5.1) Chloride Level 102 mmol/L (97-110) Carbon Dioxide Level 28 mmol/L (21-31) Anion Gap 9 (5-13) Blood Urea Nitrogen 11 mg/dl (7-20) Creatinine 0.64 mg/dl (0.44-1.00) Est Glomerular Filtrat Rate mL/min > 60 mL/min (>60) Glucose Level 119 mg/dl (70-220) Calcium Level 9.5 mg/dl (8.4-10.2) Phosphorus Level 4.2 mg/dl (2.5-4.9) Magnesium Level 2.0 mg/dl (1.7-2.5) Total Bilirubin 0.3 mg/dl (0.2-1.3) Direct Bilirubin 0.00 mg/dl (0.00-0.20) Indirect Bilirubin 0.3 mg/dl (0-1.1) Aspartate Amino Transf (AST/SGOT) 36 IU/L (15-46) Alanine Aminotransferase (ALT/SGPT) 46 IU/L (13-69) Alkaline Phosphatase 129 IU/L (42-121) Total Protein 7.8 g/dl (6.1-8.1) Albumin 3.9 g/dl (3.3-4.9) Globulin 3.90 g/dl (1.3-3.2) Albumin/Globulin Ratio 1.00 STEPHANIE BOLDEN NP Apr 04, 2019 15:02
== END 2019-04-04 16:05 | disposition home or self-care (01) | DRG 379 ==
LOC: E/R 15:17 → 6WM 19:38 → OBSVTOIN 04-01 11:30 → PP2 04-01 17:02
PROVIDERS: ADMIT Internal Medicine; ATTEND Internal Medicine
PROC: 6A551Z2 Pheresis of Platelets, Multiple (ICD-10-PCS; 2019-04-02)
PROC: 0DJ08ZZ Inspection of Upper Intestinal Tract, Via Natural or Artificial Opening Endoscopic (ICD-10-PCS; principal; 2019-04-02 14:30)
DX: K29.71 Gastritis, unspecified, with bleeding (principal); D69.6 Thrombocytopenia, unspecified; I25.10 Atherosclerotic heart disease of native coronary artery without angina pectoris; D72.829 Elevated white blood cell count, unspecified; I10 Essential (primary) hypertension; I25.2 Old myocardial infarction; R07.89 Other chest pain; E78.1 Pure hyperglyceridemia; K31.7 Polyp of stomach and duodenum
CPT/HCPCS: 36415; 36430; 71045; 80053; 80061; 81003; 82550; 82553; 83036; 83690; 83735; 83880; 84100; 84443; 84484; 84703; 85014; 85018; 85025; 85610; 85730; 86850; 86900; 86901; 87338; 93005; 93306; 96374; 96375; 96376; G0378; C9113; J1170; J2270; J2405; J3010; J7030; P9035